=== PATIENT | female | born 1960 | race Caucasian/White ===

== ENCOUNTER → 2016-12-07 | Day surgery (SDC) | payer BC ==
[~2016-12-07] MED LIST: FENTANYL PF 100 MCG/2 ML VIAL. IV PRN; HYDROMORPHONE 2 MG/ML VIAL. IV PRN; IV RINGERS,LACTATED 1000ML 1,000 ML IV SCH; LIDOCAINE 1% 1 ML SYRINGE. ID PRN; LIDOCAINE 2% PF Vial for OR 5 ML VIAL. ONE; LISI10TA2 PO; MORPHINE SULFATE 2 MG/ML DISP.SYRIN. IV PRN; ONDANSETRON PF 4 MG/2 ML VIAL. IV PRN; PROCHLORPERAZINE 10 MG/2 ML VIAL. IV PRN; PROPOFOL 20 ML IV ONE
[2016-12-07 07:55] VITALS: BP 107/68
== END | disposition home or self-care (01) ==
LOC: ENDOS 05:57
PROVIDERS: ATTEND Internal Medicine Gastroenterology
DX: K64.0 First degree hemorrhoids (principal); I10 Essential (primary) hypertension; Z72.89 Other problems related to lifestyle; Z80.41 Family history of malignant neoplasm of ovary
CPT/HCPCS: 45378; G0500; J2704

== ENCOUNTER 2020-04-25 10:30 | Inpatient (IN) | payer BC ==
[~2020-04-25] VITALS: Ht 167.6 cm; Wt 70.0 kg
[~2020-04-25 10:30] MED LIST changes: -FENTANYL PF 100 MCG/2 ML VIAL. IV PRN; -HYDROMORPHONE 2 MG/ML VIAL. IV PRN; -IV RINGERS,LACTATED 1000ML 1,000 ML IV SCH; -LIDOCAINE 1% 1 ML SYRINGE. ID PRN; -LIDOCAINE 2% PF Vial for OR 5 ML VIAL. ONE; -MORPHINE SULFATE 2 MG/ML DISP.SYRIN. IV PRN; -ONDANSETRON PF 4 MG/2 ML VIAL. IV PRN; -PROCHLORPERAZINE 10 MG/2 ML VIAL. IV PRN; -PROPOFOL 20 ML IV ONE
[2020-04-25] MEDS ORDERED: IV NORMAL SALINE 500ML BAG 500 ML IV ONE (11:00)
--- NOTE | 2020-04-25 11:08 | PHYS DOC ---
General Adult EDM: Chief Complaint: ABNORMAL LABS HPI: HPI: 59 yo AA F past medical history of hypertension, presents to the ED sent in by her primary care physician Dr. cAosta with concern for hyponatremia, sodium 115 that was drawn yesterday. Patient reports that she was having routine lab draws to check her vitamin D level. Last labs were drawn in February. States she has felt weak for the past week and states every time she has to go up steps she feels like she needs to sit down, feels as if she will faint. Denies any trauma, falls or head injury. Does not take any anticoagulants. Denies any recent upper respiratory infection vomiting, diarrhea or fluid loss. ROS: Denies associated fever, chills, cough, sore throat, nasal congestion, headache, neck stiffness, earache, rhinorrhea, n/v/d/c, abdominal or back pain, confusion, difficulty walking, dizziness, lightheadedness, leg swelling, rash, hemoptysis, melena, hematochezia, unexplained weight loss, night sweats. Heart Score: Risk Factors: Risk Factors: DM, Current or recent (<one month) smoker, HTN, HLP, family history of CAD, obesity. Risk Scores: Score 0 - 3: 2.5% MACE over next 6 weeks - Discharge Home Score 4 - 6: 20.3% MACE over next 6 weeks - Admit for Clinical Observation Score 7 - 10: 72.7% MACE over next 6 weeks - Early Invasive Strategies Current Medications: Current Medications Medications (Trade) Dose Ordered Sig/Quynh Start Time Stop Time Status Last Admin Dose Admin Sodium Chloride 500 ml @ 500 mls/hr 1X ONCE 04/25/20 11:00 04/25/20 11:59 Allergies: Allergies: Allergies Coded Allergies Type Severity Reaction Last Updated Verified Iodinated Contrast Media - Oral and Allergy Mild Itching 12/07/16 Yes Uncoded Allergies Type Severity Reaction Last Updated Verified MALT EXTRACT- LAXATIVES Allergy Mild Itching 12/07/16 Physical Exam: PE: Constitutional: Well developed, well nourished, no acute distress, non-toxic appearance. [] HENT: Normocephalic, atraumatic, oropharynx moist, Eyes: EOMI, conjunctiva normal, no discharge. [] Neck: Normal range of motion, no tenderness, supple, no stridor. [] Cardiovascular:Heart rate regular rhythm, no murmur [] Lungs & Thorax: Bilateral breath sounds clear to auscultation [] Abdomen: Bowel sounds normal, soft, no tenderness, no masses, no pulsatile masses. [] Skin: Warm, dry, no erythema, no rash. [] Back: No tenderness, no CVA tenderness. [] Extremities: No tenderness, no cyanosis, no clubbing, ROM intact, no edema. [] Neurologic: Alert and oriented X 3, normal motor function, normal sensory function, no focal deficits noted. [] Psychologic: Affect normal, judgement normal, mood normal. [] EKG: EKG: Sinus rhythm at 62 bpm, no axis deviation, short QT at 356, no T wave inv ersions, no ST elevations or ST depressions Radiology/Procedures: Radiology/Procedures: []IMAGING REPORT Signed PATIENT: BARBARA CMCANN ACCOUNT: [id number] : 1960 LOCATION: ER AGE: 59 SEX: F EXAM STATUS: REG ER ORD. PHYSICIAN: MARA LAL DO REASON: hypoNA PROCEDURE: CHEST AP ONLY CHEST AP ONLY History: Hyponatremia Comparison: None. Findings: Single view of the chest is submitted. There is no infiltrate, pneumothorax, or effusion. The pericardial cardiac silhouette is within normal limits in size. Impression: 1. There is no radiographic evidence of acute cardiopulmonary disease. Electronically signed by: Daryl Nunez MD (04/25/2020 11:32 AM) [id number] DICTATED and SIGNED BY: DARYL NUNEZ MD DATE: 04/25/20 1132 Course & Med Decision Making: Course & Med Decision Making Pertinent Labs and Imaging studies reviewed. (See chart for details) Concern for mild (based off of symptoms) hyponatremia, patient takes 1 medicatio n for blood pressure which is triamterene/hydrochlorothiazide (hyponatremia 2/2 HCTZ?). Gentle fluid hydration started in ED. Creatinine slightly elevated at 1.4. Magnesium low at 1.7. Will admit for further medical management. Patient stable at time of admission. I have spoken with the patient and/or caregivers. I have explained the patient's condition, diagnosis and treatment plan based on the information available to me at this time. I have answered the patient's and/or caregivers questions and answered any concerns. The patient and/or caregivers have as good an understanding of the patient's diagnosis, condition and treatment plan as can be expected at this point. The patient has been stabilized within the capability of the emergency department. The patient will be transported for further care and management or will be moved to an observation or inpatient service. I have communicated with the staff or medical practitioner taking over this patient's care. Critical Care: Authorized and Performed by: Mara Lal DO Total critical care time: approximately 30 minutes Due to a high probability of clinically significant, life threatening deterioration, the patient required my highest level of preparedness to intervene emergently and I personally spent this critical care time directly and personally managing the patient. This critical care time included obtaining a history; examining the patient; pulse oximetry; ventilator management if necessary; ordering and review of studies; arranging urgent treatment with development of a management plan; evaluation of patient's response to treatment; frequent reassessment; discussion with patient/family; and, discussions with other providers. This critical care time was performed to assess and manage the high probability of imminent, life-threatening deterioration that could result in multi-organ failure. It was exclusive of separately billable procedures and treating other patients and teaching time. Please see MDM section and the rest of the note for further information on patient assessment and treatment. Dragon Disclaimer: Dragon Disclaimer: This electronic medical record was generated, in whole or in part, using a voice recognition dictation system. Departure Departure Impression: Primary Impression: Hyponatremia Additional Impressions: JOSUE (acute kidney injury) Hypomagnesemia Disposition: ADMITTED INPATIENT Admitting Physician: SKIP (Dr. Verde) Condition: CRITICAL Referrals: AIDEE PAYTON (PCP) Justicifation of Admission Dx: Justifications for Admission: Justification of Admission Dx: Yes Comments: hyponatremia MARA LAL DO Apr 25, 2020 11:08
[2020-04-25 11:34] LABS: BASO % 1 % (0-3); EOS # 0.1 x10^3/uL (0.0-0.7); EOS % 1 % (0-3); HEMATOCRIT 31.3 % (36.0-47.0); HEMOGLOBIN 10.8 g/dL (12.0-15.5); LYMPH # 1.4 x10^3/uL (1.0-4.8); LYMPH % 33 % (24-48); MEAN CORPUSCULAR HEMOGLOBIN 32 pg (25-35); MEAN CORPUSCULAR HGB CONC 35 g/dL (31-37); MEAN CORPUSCULAR VOLUME 94 fL (79-100); MONO # 0.8 x10^3/uL (0.0-1.1); MONO % 18 % (0-9); NEUT # 2.1 x10^3/uL (1.8-7.7); NEUT % 47 % (31-73); PLATELET COUNT 375 x10^3/uL (140-400); RED BLOOD COUNT 3.34 x10^6/uL (3.50-5.40); RED CELL DISTRIBUTION WIDTH 12.2 % (11.5-14.5); WHITE BLOOD COUNT 4.4 x10^3/uL (4.0-11.0)
--- NOTE | 2020-04-25 11:35 | RAD ---
CHEST AP ONLY History: Hyponatremia Comparison: None. Findings: Single view of the chest is submitted. There is no infiltrate, pneumothorax, or effusion. The pericardial cardiac silhouette is within normal limits in size. Impression: 1. There is no radiographic evidence of acute cardiopulmonary disease. Electronically signed by: Ibrahima Salazar MD (04/25/2020 11:32 AM) [id number]
[2020-04-25 12:32] LABS: ALBUMIN 4.3 g/dL (3.4-5.0); ALBUMIN/GLOBULIN RATIO 1.3 (1.0-1.7); CALCIUM 10.4 mg/dL (8.5-10.1); CREATININE 1.4 mg/dL (0.6-1.0); GFR 38.2; MAGNESIUM 1.7 mg/dL (1.8-2.4); PHOSPHORUS 2.8 mg/dL (2.6-4.7); TOTAL BILIRUBIN 0.4 mg/dL (0.2-1.0); TOTAL PROTEIN 7.7 g/dL (6.4-8.2)
--- NOTE | 2020-04-25 13:47 | PDOC1 ---
History and Physical Date of Admission Date of Admission DATE: 04/25/20 TIME: 13:46 Identification/Chief Complaint Chief Complaint cc ========= 59 yo AA F past medical history of hypertension, presents to the ED sent in by her primary care physician Dr. Acosta with concern for hyponatremia, sodium 115 that was drawn yesterday urine and serum osmolality pending as well as serum cortisol Past Medical History Cardiovascular: HTN Family History Family History: Hypertension Social History Smoke: No ALCOHOL: none Drugs: None Current Problem List Problem List Problems Medical Problems: (1) JOSUE (acute kidney injury) Status: Acute (2) Hypomagnesemia Status: Acute (3) Hyponatremia Status: Acute Current Medications Current Medications Current Medications Sodium Chloride 500 ml @ 500 mls/hr 1X ONCE IV Last administered on 04/25/20at 11:33; Start 04/25/20 at 11:00; Stop 04/25/20 at 11:59; Status DC Active Scripts Active Reported Lisinopril 10 Mg Tablet 1 Tab PO DAILY Allergies Allergies: Coded Allergies: Iodinated Contrast Media - Oral and (Verified Allergy, Mild, Itching, 12/07/16) Uncoded Allergies: MALT EXTRACT- LAXATIVES (Allergy, Mild, Itching, 12/07/16) ROS Review of System Constitutional: Denies fever or chills. [] feels light headed with activity Eyes: Denies change in visual acuity. [] HENT: Denies nasal congestion or sore throat. [] Respiratory: Denies cough or shortness of breath. [] Cardiovascular: Denies chest pain or edema. [] GI: Denies abdominal pain, nausea, vomiting, bloody stools or diarrhea. [] : Denies dysuria. [] Musculoskeletal: Denies back pain or joint pain. [] Integument: Denies rash. [] Neurologic: Denies headache, focal weakness or sensory changes. [] Endocrine: Denies polyuria or polydipsia. [] Lymphatic: Denies swollen glands. [] Psychiatric: Denies depression or anxiety. [] 14 pt ros otherwise neg General: YES: Fatigue, Malaise Hematological and Lymphatic: No: Bleeding Problems, Blood Clots, Blood Transfusions, Brusing, Night Sweats, Pallor, Swollen Lymph Nodes, Other Musculoskeletal: Yes Gait Disturbance Neurological: Yes Dizziness, Yes Gait Disturbance Physical Exam Physical Exam Constitutional: Well developed, well nourished, no acute distress, non-toxic appearance. [] HENT: Normocephalic, atraumatic, bilateral external ears normal, oropharynx moist, no oral exudates, nose normal. [] Eyes: PERRLA, EOMI, conjunctiva normal, no discharge. [] Neck: Normal range of motion, no tenderness, supple, no stridor. [] Cardiovascular:Heart rate regular rhythm, no murmur [] Lungs & Thorax: Bilateral breath sounds clear to auscultation [] Abdomen: Bowel sounds normal, soft, no tenderness, no masses, no pulsatile masses. [] Skin: Warm, dry, no erythema, no rash. [] Back: No tenderness, no CVA tenderness. [] Extremities: No tenderness, no cyanosis, no clubbing, ROM intact, no edema. [] Neurologic: Alert and oriented X 3, normal motor function, normal sensory function, no focal deficits noted. [] Psychologic: Affect normal, judgment normal, mood normal. [] General: No acute distress Lungs: Clear to auscultation, Normal air movement Heart: RRR, no thrills Breasts: Not examined Abdomen: Normal bowel sounds, Soft Rectal Exam: not examined PELVIC: Examination not indicated Extremities: No cyanosis Neuro: Normal speech, Cranial nerves 3-12 NL Psych/Mental Status: Mental status NL, Mood NL Vitals Vitals Vital Signs Date Time Temp Pulse Resp B/P (MAP) Pulse Ox O2 Delivery O2 Flow Rate FiO2 04/25/20 11:34 61 18 118/59 (78) 100 Room Air 04/25/20 11:00 98.1 98.1 Labs Labs Laboratory Tests Test 04/25/20 11:10 04/25/20 12:00 White Blood Count 4.4 x10^3/uL (4.0-11.0) Red Blood Count 3.34 x10^6/uL (3.50-5.40) Hemoglobin 10.8 g/dL (12.0-15.5) Hematocrit 31.3 % (36.0-47.0) Mean Corpuscular Volume 94 fL (79-100) Mean Corpuscular Hemoglobin 32 pg (25-35) Mean Corpuscular Hemoglobin Concent 35 g/dL (31-37) Red Cell Distribution Width 12.2 % (11.5-14.5) Platelet Count 375 x10^3/uL (140-400) Neutrophils (%) (Auto) 47 % (31-73) Lymphocytes (%) (Auto) 33 % (24-48) Monocytes (%) (Auto) 18 % (0-9) Eosinophils (%) (Auto) 1 % (0-3) Basophils (%) (Auto) 1 % (0-3) Neutrophils # (Auto) 2.1 x10^3/uL (1.8-7.7) Lymphocytes # (Auto) 1.4 x10^3/uL (1.0-4.8) Monocytes # (Auto) 0.8 x10^3/uL (0.0-1.1) Eosinophils # (Auto) 0.1 x10^3/uL (0.0-0.7) Basophils # (Auto) 0.0 x10^3/uL (0.0-0.2) Sodium Level 114 mmol/L (136-145) Potassium Level 5.0 mmol/L (3.5-5.1) Chloride Level 82 mmol/L (98-107) Carbon Dioxide Level 20 mmol/L (21-32) Anion Gap 12 (6-14) Blood Urea Nitrogen 32 mg/dL (7-20) Creatinine 1.4 mg/dL (0.6-1.0) Estimated GFR (Cockcroft-Gault) 38.2 BUN/Creatinine Ratio 23 (6-20) Glucose Level 88 mg/dL (70-99) Calcium Level 10.4 mg/dL (8.5-10.1) Phosphorus Level 2.8 mg/dL (2.6-4.7) Magnesium Level 1.7 mg/dL (1.8-2.4) Total Bilirubin 0.4 mg/dL (0.2-1.0) Aspartate Amino Transf (AST/SGOT) 14 U/L (15-37) Alanine Aminotransferase (ALT/SGPT) 18 U/L (14-59) Alkaline Phosphatase 114 U/L (46-116) Total Protein 7.7 g/dL (6.4-8.2) Albumin 4.3 g/dL (3.4-5.0) Albumin/Globulin Ratio 1.3 (1.0-1.7) Laboratory Tests Test 04/25/20 11:10 8/29/20 12:00 White Blood Count 4.4 x10^3/uL (4.0-11.0) Red Blood Count 3.34 x10^6/uL (3.50-5.40) Hemoglobin 10.8 g/dL (12.0-15.5) Hematocrit 31.3 % (36.0-47.0) Mean Corpuscular Volume 94 fL (79-100) Mean Corpuscular Hemoglobin 32 pg (25-35) Mean Corpuscular Hemoglobin Concent 35 g/dL (31-37) Red Cell Distribution Width 12.2 % (11.5-14.5) Platelet Count 375 x10^3/uL (140-400) Neutrophils (%) (Auto) 47 % (31-73) Lymphocytes (%) (Auto) 33 % (24-48) Monocytes (%) (Auto) 18 % (0-9) Eosinophils (%) (Auto) 1 % (0-3) Basophils (%) (Auto) 1 % (0-3) Neutrophils # (Auto) 2.1 x10^3/uL (1.8-7.7) Lymphocytes # (Auto) 1.4 x10^3/uL (1.0-4.8) Monocytes # (Auto) 0.8 x10^3/uL (0.0-1.1) Eosinophils # (Auto) 0.1 x10^3/uL (0.0-0.7) Basophils # (Auto) 0.0 x10^3/uL (0.0-0.2) Sodium Level 114 mmol/L (136-145) Potassium Level 5.0 mmol/L (3.5-5.1) Chloride Level 82 mmol/L (98-107) Carbon Dioxide Level 20 mmol/L (21-32) Anion Gap 12 (6-14) Blood Urea Nitrogen 32 mg/dL (7-20) Creatinine 1.4 mg/dL (0.6-1.0) Estimated GFR (Cockcroft-Gault) 38.2 BUN/Creatinine Ratio 23 (6-20) Glucose Level 88 mg/dL (70-99) Calcium Level 10.4 mg/dL (8.5-10.1) Phosphorus Level 2.8 mg/dL (2.6-4.7) Magnesium Level 1.7 mg/dL (1.8-2.4) Total Bilirubin 0.4 mg/dL (0.2-1.0) Aspartate Amino Transf (AST/SGOT) 14 U/L (15-37) Alanine Aminotransferase (ALT/SGPT) 18 U/L (14-59) Alkaline Phosphatase 114 U/L (46-116) Total Protein 7.7 g/dL (6.4-8.2) Albumin 4.3 g/dL (3.4-5.0) Albumin/Globulin Ratio 1.3 (1.0-1.7) Images Images History: Hyponatremia Comparison: None. Findings: Single view of the chest is submitted. There is no infiltrate, pneumothorax, or effusion. The pericardial cardiac silhouette is within normal limits in size. Impression: 1. There is no radiographic evidence of acute cardiopulmonary disease. Electronically signed by: Daryl Nunez MD (04/25/2020 11:32 AM) [id number] DICTATED and SIGNED BY: DARYL NUNEZ MD DATE: 04/25/20 113 VTE Prophylaxis Ordered VTE Prophylaxis Devices: Yes VTE Pharmacological Prophylaxi: Yes Assessment/Plan Assessment/Plan impression 1. 59 yo AA F past medical history of hypertension, presents with concern for hyponatremia, sodium 115 that was drawn yesterday, now 114 2. severe hyponatremia 3. mild hypercalcemia 4. normocytic anemia 5. hypomagnesemia 6. possible adrenal insufficiency plan admit ICU BED Slow correction of na, nephrology consult serum osmolality urine osmolality random urine na fluid restrict bmp q 8 hrs replace mg dvt prophylaxis AM, PM CORTISOL 32 MIN CC TIME Justifications for Admission Other Justification SHERIE LIM MD Apr 25, 2020 13:47
[2020-04-25] MEDS ORDERED: IV NORMAL SALINE 1000ML BAG 1,000 ML IV SCH (18:15)
[2020-04-25 20:50] VITALS: BP 95/51
--- NOTE | 2020-04-25 20:50 | NUR ---
pt admitted to room 103 from ED at this time. pt is alert and oriented x4, VSS on room air, able to answer admission questions without difficulty. denies pain, no c/os. pt oriented to room, unit routines, call light, diet and plan of care. call light in reach, will continue to monitor.
[2020-04-25 22:00] VITALS: BP 86/50
[2020-04-25 23:00] VITALS: BP 98/51
[2020-04-26] VITALS (12 sets, daily range): BP systolic 75–107; BP diastolic 39–61
[2020-04-26] MEDS ORDERED: TRIA1CAP PO (00:23)
[2020-04-26] MEDS ORDERED: LISI-130 PO (00:23)
[2020-04-26 10:06] LABS: CALCIUM 9.3 mg/dL (8.5-10.1); CREATININE 1.4 mg/dL (0.6-1.0); GFR 38.2; POTASSIUM 4.9 mmol/L (3.5-5.1)
--- NOTE | 2020-04-26 10:22 | PDOC ---
PROGRESS NOTES Date of Service: DATE: 04/26/20 TIME: 10:21 Chief Complaint Chief Complaint VTE Prophylaxis Ordered VTE Prophylaxis Devices: Yes VTE Pharmacological Prophylaxi: Yes Assessment/Plan Assessment/Plan impression 1. 59 yo AA F past medical history of hypertension, presents with concern for hyponatremia, sodium 115 that was drawn yesterday, now 114 2. severe hyponatremia 3. mild hypercalcemia 4. normocytic anemia 5. hypomagnesemia 6. possible adrenal insufficiency plan admit ICU BED Slow correction of na, nephrology consult serum osmolality urine osmolality random urine na fluid restrict bmp q 8 hrs replace mg dvt prophylaxis AM, PM CORTISOL avoid overcorrection, too fast cxr UDS d/c iv fluids fluid restrict 1800 cc/24 hrs 27 MIN CC TIME Justifications for Admission Justifications for Admission Other Justification History of Present Illness History of Present Illness Identification/Chief Complaint Chief Complaint cc ========= 59 yo AA F past medical history of hypertension, presents to the ED sent in by her primary care physician Dr. Acosta with concern for hyponatremia, sodium 115 that was drawn yesterday urine and serum osmolality pending as well as serum cortisol Past Medical History Cardiovascular: HTN Family History Family History: Hypertension Social History Smoke: No ALCOHOL: none Drugs: None Vitals Vitals Vital Signs Date Time Temp Pulse Resp B/P (MAP) Pulse Ox O2 Delivery O2 Flow Rate FiO2 04/26/20 09:00 61 98/61 (73) Room Air 04/26/20 08:00 98.0 16 100 98.0 04/25/20 20:50 Physical Exam General: Alert, Oriented X3, Cooperative, No acute distress Heart: Regular rate, Normal S1 Lungs: Clear Abdomen: Normal bowel sounds, Soft, No tenderness Extremities: No clubbing, No cyanosis, No edema Skin: No significant lesion Labs LABS Laboratory Tests Test 04/25/20 11:10 04/25/20 12:00 04/26/20 09:20 White Blood Count 4.4 x10^3/uL (4.0-11.0) Red Blood Count 3.34 x10^6/uL (3.50-5.40) Hemoglobin 10.8 g/dL (12.0-15.5) Hematocrit 31.3 % (36.0-47.0) Mean Corpuscular Volume 94 fL (79-100) Mean Corpuscular Hemoglobin 32 pg (25-35) Mean Corpuscular Hemoglobin Concent 35 g/dL (31-37) Red Cell Distribution Width 12.2 % (11.5-14.5) Platelet Count 375 x10^3/uL (140-400) Neutrophils (%) (Auto) 47 % (31-73) Lymphocytes (%) (Auto) 33 % (24-48) Monocytes (%) (Auto) 18 % (0-9) Eosinophils (%) (Auto) 1 % (0-3) Basophils (%) (Auto) 1 % (0-3) Neutrophils # (Auto) 2.1 x10^3/uL (1.8-7.7) Lymphocytes # (Auto) 1.4 x10^3/uL (1.0-4.8) Monocytes # (Auto) 0.8 x10^3/uL (0.0-1.1) Eosinophils # (Auto) 0.1 x10^3/uL (0.0-0.7) Basophils # (Auto) 0.0 x10^3/uL (0.0-0.2) Sodium Level 114 mmol/L (136-145) 122 mmol/L (136-145) Potassium Level 5.0 mmol/L (3.5-5.1) 4.9 mmol/L (3.5-5.1) Chloride Level 82 mmol/L (98-107) 92 mmol/L (98-107) Carbon Dioxide Level 20 mmol/L (21-32) 21 mmol/L (21-32) Anion Gap 12 (6-14) 9 (6-14) Blood Urea Nitrogen 32 mg/dL (7-20) 30 mg/dL (7-20) Creatinine 1.4 mg/dL (0.6-1.0) 1.4 mg/dL (0.6-1.0) Estimated GFR (Cockcroft-Gault) 38.2 38.2 BUN/Creatinine Ratio 23 (6-20) Glucose Level 88 mg/dL (70-99) 118 mg/dL (70-99) Calcium Level 10.4 mg/dL (8.5-10.1) 9.3 mg/dL (8.5-10.1) Phosphorus Level 2.8 mg/dL (2.6-4.7) Magnesium Level 1.7 mg/dL (1.8-2.4) Total Bilirubin 0.4 mg/dL (0.2-1.0) Aspartate Amino Transf (AST/SGOT) 14 U/L (15-37) Alanine Aminotransferase (ALT/SGPT) 18 U/L (14-59) Alkaline Phosphatase 114 U/L (46-116) Total Protein 7.7 g/dL (6.4-8.2) Albumin 4.3 g/dL (3.4-5.0) Albumin/Globulin Ratio 1.3 (1.0-1.7) Iron Level 50 ug/dL (50-170) Total Iron Binding Capacity 338 ug/dL (250-450) Iron Saturation 15 % (15-34) Assessment and Plan Assessmemt and Plan Problems Medical Problems: (1) JOSUE (acute kidney injury) Status: Acute (2) Hypomagnesemia Status: Acute (3) Hyponatremia Status: Acute Comment Review of Relevant I have reviewed the following items mickey (where applicable) has been applied. Labs Laboratory Tests Test 04/25/20 11:10 04/25/20 12:00 04/26/20 09:20 White Blood Count 4.4 x10^3/uL (4.0-11.0) Red Blood Count 3.34 x10^6/uL (3.50-5.40) Hemoglobin 10.8 g/dL (12.0-15.5) Hematocrit 31.3 % (36.0-47.0) Mean Corpuscular Volume 94 fL (79-100) Mean Corpuscular Hemoglobin 32 pg (25-35) Mean Corpuscular Hemoglobin Concent 35 g/dL (31-37) Red Cell Distribution Width 12.2 % (11.5-14.5) Platelet Count 375 x10^3/uL (140-400) Neutrophils (%) (Auto) 47 % (31-73) Lymphocytes (%) (Auto) 33 % (24-48) Monocytes (%) (Auto) 18 % (0-9) Eosinophils (%) (Auto) 1 % (0-3) Basophils (%) (Auto) 1 % (0-3) Neutrophils # (Auto) 2.1 x10^3/uL (1.8-7.7) Lymphocytes # (Auto) 1.4 x10^3/uL (1.0-4.8) Monocytes # (Auto) 0.8 x10^3/uL (0.0-1.1) Eosinophils # (Auto) 0.1 x10^3/uL (0.0-0.7) Basophils # (Auto) 0.0 x10^3/uL (0.0-0.2) Sodium Level 114 mmol/L (136-145) 122 mmol/L (136-145) Potassium Level 5.0 mmol/L (3.5-5.1) 4.9 mmol/L (3.5-5.1) Chloride Level 82 mmol/L (98-107) 92 mmol/L (98-107) Carbon Dioxide Level 20 mmol/L (21-32) 21 mmol/L (21-32) Anion Gap 12 (6-14) 9 (6-14) Blood Urea Nitrogen 32 mg/dL (7-20) 30 mg/dL (7-20) Creatinine 1.4 mg/dL (0.6-1.0) 1.4 mg/dL (0.6-1.0) Estimated GFR (Cockcroft-Gault) 38.2 38.2 BUN/Creatinine Ratio 23 (6-20) Glucose Level 88 mg/dL (70-99) 118 mg/dL (70-99) Calcium Level 10.4 mg/dL (8.5-10.1) 9.3 mg/dL (8.5-10.1) Phosphorus Level 2.8 mg/dL (2.6-4.7) Magnesium Level 1.7 mg/dL (1.8-2.4) Total Bilirubin 0.4 mg/dL (0.2-1.0) Aspartate Amino Transf (AST/SGOT) 14 U/L (15-37) Alanine Aminotransferase (ALT/SGPT) 18 U/L (14-59) Alkaline Phosphatase 114 U/L (46-116) Total Protein 7.7 g/dL (6.4-8.2) Albumin 4.3 g/dL (3.4-5.0) Albumin/Globulin Ratio 1.3 (1.0-1.7) Iron Level 50 ug/dL (50-170) Total Iron Binding Capacity 338 ug/dL (250-450) Iron Saturation 15 % (15-34) Laboratory Tests Test 04/25/20 11:10 04/25/20 12:00 04/26/20 09:20 White Blood Count 4.4 x10^3/uL (4.0-11.0) Red Blood Count 3.34 x10^6/uL (3.50-5.40) Hemoglobin 10.8 g/dL (12.0-15.5) Hematocrit 31.3 % (36.0-47.0) Mean Corpuscular Volume 94 fL (79-100) Mean Corpuscular Hemoglobin 32 pg (25-35) Mean Corpuscular Hemoglobin Concent 35 g/dL (31-37) Red Cell Distribution Width 12.2 % (11.5-14.5) Platelet Count 375 x10^3/uL (140-400) Neutrophils (%) (Auto) 47 % (31-73) Lymphocytes (%) (Auto) 33 % (24-48) Monocytes (%) (Auto) 18 % (0-9) Eosinophils (%) (Auto) 1 % (0-3) Basophils (%) (Auto) 1 % (0-3) Neutrophils # (Auto) 2.1 x10^3/uL (1.8-7.7) Lymphocytes # (Auto) 1.4 x10^3/uL (1.0-4.8) Monocytes # (Auto) 0.8 x10^3/uL (0.0-1.1) Eosinophils # (Auto) 0.1 x10^3/uL (0.0-0.7) Basophils # (Auto) 0.0 x10^3/uL (0.0-0.2) Sodium Level 114 mmol/L (136-145) 122 mmol/L (136-145) Potassium Level 5.0 mmol/L (3.5-5.1) 4.9 mmol/L (3.5-5.1) Chloride Level 82 mmol/L (98-107) 92 mmol/L (98-107) Carbon Dioxide Level 20 mmol/L (21-32) 21 mmol/L (21-32) Anion Gap 12 (6-14) 9 (6-14) Blood Urea Nitrogen 32 mg/dL (7-20) 30 mg/dL (7-20) Creatinine 1.4 mg/dL (0.6-1.0) 1.4 mg/dL (0.6-1.0) Estimated GFR (Cockcroft-Gault) 38.2 38.2 BUN/Creatinine Ratio 23 (6-20) Glucose Level 88 mg/dL (70-99) 118 mg/dL (70-99) Calcium Level 10.4 mg/dL (8.5-10.1) 9.3 mg/dL (8.5-10.1) Phosphorus Level 2.8 mg/dL (2.6-4.7) Magnesium Level 1.7 mg/dL (1.8-2.4) Total Bilirubin 0.4 mg/dL (0.2-1.0) Aspartate Amino Transf (AST/SGOT) 14 U/L (15-37) Alanine Aminotransferase (ALT/SGPT) 18 U/L (14-59) Alkaline Phosphatase 114 U/L (46-116) Total Protein 7.7 g/dL (6.4-8.2) Albumin 4.3 g/dL (3.4-5.0) Albumin/Globulin Ratio 1.3 (1.0-1.7) Iron Level 50 ug/dL (50-170) Total Iron Binding Capacity 338 ug/dL (250-450) Iron Saturation 15 % (15-34) Medications Current Medications Sodium Chloride 500 ml @ 500 mls/hr 1X ONCE IV Last administered on 04/25/20at 11:33; Start 04/25/20 at 11:00; Stop 04/25/20 at 11:59; Status DC Sodium Chloride 1,000 ml @ 75 mls/hr [id number] IV Last administered on 04/25/20at 18:25; Start 04/25/20 at 18:15 Active Scripts Active Reported Dyazide 37.5-25 Capsule (Triamterene/Hydrochlorothiazid) 1 Each Capsule 1 Cap PO DAILY Lisinopril 40 Mg Tablet 40 Mg PO DAILY Lisinopril 10 Mg Tablet 1 Tab PO DAILY Vitals/I & O Vital Sign - Last 24 Hours 04/25/20 04/25/20 04/25/20 04/25/20 11:00 11:34 12:18 13:18 Temp 98.1 98.1 Pulse 71 61 56 56 Resp 18 18 B/P (MAP) 123/68 (86) 118/59 (78) 120/65 (83) 119/59 (79) Pulse Ox 100 100 100 100 O2 Delivery Room Air Room Air Room Air Room Air 04/25/20 04/25/20 04/25/20 04/25/20 14:18 14:48 15:18 15:48 Pulse 66 62 62 62 B/P (MAP) 94/58 (70) 103/61 (75) 106/62 (77) 95/51 (66) Pulse Ox 100 100 99 100 O2 Delivery Room Air Room Air Room Air Room Air 04/25/20 04/25/20 04/25/20 04/25/20 16:18 16:48 17:18 18:28 Pulse 62 68 60 70 B/P (MAP) 86/54 (65) 97/47 (64) 81/44 (56) 85/48 (60) Pulse Ox 96 96 100 O2 Delivery Room Air Room Air Room Air Room Air 04/25/20 04/25/20 04/25/20 04/25/20 18:58 19:28 20:50 22:00 Temp 98.3 98.3 Pulse 66 62 65 60 Resp 18 20 B/P (MAP) 79/55 (63) 98/51 (67) 95/51 (66) 86/50 (62) Pulse Ox 100 62 98 98 O2 Delivery Room Air Room Air Room Air Room Air O2 Flow Rate 04/25/20 04/26/20 04/26/20 04/26/20 23:00 01:00 02:00 03:00 Temp 98.2 98.2 Pulse 66 68 63 66 Resp 16 18 18 18 B/P (MAP) 98/51 (67) 91/47 (62) 90/40 (57) 99/45 (63) Pulse Ox 97 99 98 100 O2 Delivery Room Air Room Air Room Air Room Air 04/26/20 04/26/20 04/26/20 04/26/20 04:00 05:00 06:00 07:00 Pulse 65 59 83 60 Resp 18 18 16 14 B/P (MAP) 80/39 (53) 96/54 (68) 94/48 (63) 78/56 (63) Pulse Ox 100 99 100 97 O2 Delivery Room Air Room Air Room Air Room Air 04/26/20 04/26/20 08:00 09:00 Temp 98.0 98.0 Pulse 60 61 Resp 16 B/P (MAP) 75/58 (64) 98/61 (73) Pulse Ox 100 O2 Delivery Room Air Room Air Intake and Output 0 04/25/20 04/25/20 04/26/20 15:00 23:00 07:00 Intake Total 500 ml 1590 ml Balance 500 ml 1590 ml Justicifation of Admission Dx: Justifications for Admission: Justification of Admission Dx: Yes SHERIE LIM MD Apr 26, 2020 10:21
--- NOTE | 2020-04-26 14:53 | PDOC2 ---
CONSULT Date of Consult Date of Consult DATE: 04/26/20 TIME: 14:37 Reason for Consult Reason for Consult: LOW NA Referring Physician Referring Physician: RAPHAEL Identification/Chief Complaint Chief Complaint COMPLAINTS OF WEAKNESS AND SOME DIZZINESS Source Source: Chart review, Patient History of Present Illness Reason for Visit: THIS IS A 59 YR OLD WITH SOME DIZZINESS. OP LABS SHOWED A LOW NA AND SHE WAS ASKED TO COME IN AND LABS HERE CONFIRMED LOW NA. DENIED ANY EXCESSIVE NA OR WATER INTAKE. NO EXCESSIVE THIRST. NO EDEMA. HAS BEEN ON THIAZIDE AND AN CHARLES-I FOR YEARS. LABS ALSO NOTED FOR MILD HYPERCALCEMIA AND LOW MG Past Medical History Cardiovascular: HTN Family History Family History: Hypertension Social History No ALCOHOL: none Drugs: None Current Problem List Problem List Problems Medical Problems: (1) JOSUE (acute kidney injury) Status: Acute (2) Hypomagnesemia Status: Acute (3) Hyponatremia Status: Acute Current Medications Current Medications Current Medications Sodium Chloride 500 ml @ 500 mls/hr 1X ONCE IV Last administered on 04/25/20at 11:33; Start 04/25/20 at 11:00; Stop 04/25/20 at 11:59; Status DC Sodium Chloride 1,000 ml @ 75 mls/hr [id number] IV Last administered on 04/25/20at 18:25; Start 04/25/20 at 18:15; Stop 04/26/20 at 12:02; Status DC Active Scripts Active Reported Dyazide 37.5-25 Capsule (Triamterene/Hydrochlorothiazid) 1 Each Capsule 1 Cap PO DAILY Lisinopril 40 Mg Tablet 40 Mg PO DAILY Lisinopril 10 Mg Tablet 1 Tab PO DAILY Allergies Allergies: Coded Allergies: Iodinated Contrast Media (Verified Allergy, Intermediate, Itching, 04/25/20) malt extract (Verified Allergy, Intermediate, Itching, 04/25/20) ROS General: YES: Fatigue, Malaise PSYCHOLOGICAL ROS: YES: Anxiety, Depression Eyes: Yes Decreased vision ALLERGY AND IMMUNOLOGY: YES: Seasonal Allergies Gastrointestinal: Yes Constipation Genitourinary: YES Other (NOCTURIA) Musculoskeletal: Yes Muscular Weakness Neurological: Yes Dizziness, Yes Weakness Skin: Yes Dry Skin Physical Exam General: Alert, Oriented X3, Cooperative, No acute distress HEENT: PERRLA Lungs: Clear to auscultation, Normal air movement Heart: Regular rate Abdomen: Normal bowel sounds, Soft, No tenderness Extremities: No cyanosis Skin: No breakdown Neuro: Normal speech, Sensation intact Vitals VITALS Vital Signs Date Time Temp Pulse Resp B/P (MAP) Pulse Ox O2 Delivery O2 Flow Rate FiO2 04/26/20 12:00 98.5 62 18 86/45 (59) 98 Room Air 98.5 04/25/20 20:50 Labs Labs Laboratory Tests Test 04/25/20 11:10 04/25/20 12:00 04/26/20 09:20 White Blood Count 4.4 x10^3/uL (4.0-11.0) Red Blood Count 3.34 x10^6/uL (3.50-5.40) Hemoglobin 10.8 g/dL (12.0-15.5) Hematocrit 31.3 % (36.0-47.0) Mean Corpuscular Volume 94 fL (79-100) Mean Corpuscular Hemoglobin 32 pg (25-35) Mean Corpuscular Hemoglobin Concent 35 g/dL (31-37) Red Cell Distribution Width 12.2 % (11.5-14.5) Platelet Count 375 x10^3/uL (140-400) Neutrophils (%) (Auto) 47 % (31-73) Lymphocytes (%) (Auto) 33 % (24-48) Monocytes (%) (Auto) 18 % (0-9) Eosinophils (%) (Auto) 1 % (0-3) Basophils (%) (Auto) 1 % (0-3) Neutrophils # (Auto) 2.1 x10^3/uL (1.8-7.7) Lymphocytes # (Auto) 1.4 x10^3/uL (1.0-4.8) Monocytes # (Auto) 0.8 x10^3/uL (0.0-1.1) Eosinophils # (Auto) 0.1 x10^3/uL (0.0-0.7) Basophils # (Auto) 0.0 x10^3/uL (0.0-0.2) Sodium Level 114 mmol/L (136-145) 122 mmol/L (136-145) Potassium Level 5.0 mmol/L (3.5-5.1) 4.9 mmol/L (3.5-5.1) Chloride Level 82 mmol/L (98-107) 92 mmol/L (98-107) Carbon Dioxide Level 20 mmol/L (21-32) 21 mmol/L (21-32) Anion Gap 12 (6-14) 9 (6-14) Blood Urea Nitrogen 32 mg/dL (7-20) 30 mg/dL (7-20) Creatinine 1.4 mg/dL (0.6-1.0) 1.4 mg/dL (0.6-1.0) Estimated GFR (Cockcroft-Gault) 38.2 38.2 BUN/Creatinine Ratio 23 (6-20) Glucose Level 88 mg/dL (70-99) 118 mg/dL (70-99) Calcium Level 10.4 mg/dL (8.5-10.1) 9.3 mg/dL (8.5-10.1) Phosphorus Level 2.8 mg/dL (2.6-4.7) Magnesium Level 1.7 mg/dL (1.8-2.4) Total Bilirubin 0.4 mg/dL (0.2-1.0) Aspartate Amino Transf (AST/SGOT) 14 U/L (15-37) Alanine Aminotransferase (ALT/SGPT) 18 U/L (14-59) Alkaline Phosphatase 114 U/L (46-116) Total Protein 7.7 g/dL (6.4-8.2) Albumin 4.3 g/dL (3.4-5.0) Albumin/Globulin Ratio 1.3 (1.0-1.7) Iron Level 50 ug/dL (50-170) Total Iron Binding Capacity 338 ug/dL (250-450) Iron Saturation 15 % (15-34) Free Thyroxine 0.99 ng/dL (0.76-1.46) Laboratory Tests Test 04/26/20 09:20 Sodium Level 122 mmol/L (136-145) Potassium Level 4.9 mmol/L (3.5-5.1) Chloride Level 92 mmol/L (98-107) Carbon Dioxide Level 21 mmol/L (21-32) Anion Gap 9 (6-14) Blood Urea Nitrogen 30 mg/dL (7-20) Creatinine 1.4 mg/dL (0.6-1.0) Estimated GFR (Cockcroft-Gault) 38.2 Glucose Level 118 mg/dL (70-99) Calcium Level 9.3 mg/dL (8.5-10.1) Iron Level 50 ug/dL (50-170) Total Iron Binding Capacity 338 ug/dL (250-450) Iron Saturation 15 % (15-34) Free Thyroxine 0.99 ng/dL (0.76-1.46) Assessment/Plan Assessment/Plan IMP SEVERE HYPONATREMIA LOW MAG HYPERCALCEMIA HYPOTENSION PLAN AGREE WITH CORTISOL LEVEL SERUM AND URINE OSM PENDING CHECK URINE LYTES REPLACE MAG ISOTONIC SALINE FOR NOW RODRIGO DERAS MD Apr 26, 2020 14:53
[2020-04-26] MEDS ORDERED: IV NORMAL SALINE 1000ML BAG 1,000 ML IV SCH (15:00)
[2020-04-26] MEDS ORDERED: MAGNESIUM SULFATE 2GM 50 ML IV ONE (15:15)
--- NOTE | 2020-04-26 15:34 | RAD ---
CHEST AP ONLY INDICATION: hyponatremia / Spl. Instructions: / History: . COMPARISON STUDY: 04/25/2020. FINDINGS: Lungs: Normal lung volume. No focal airspace disease. Normal pulmonary vasculature. Pleura: No pleural effusion or pneumothorax. Heart and Mediastinum: Stable cardiomediastinal silhouette and great vessels. IMPRESSION: No acute cardiopulmonary process. Electronically signed by: Ibrahima Flowers MD (04/26/2020 3:31 PM) [id number]
[2020-04-26 16:57] LABS: CALCIUM 9.7 mg/dL (8.5-10.1); CREATININE 1.2 mg/dL (0.6-1.0); GFR 45.7; POTASSIUM 4.6 mmol/L (3.5-5.1)
[2020-04-26] MEDS: MAGNESIUM OXIDE 400 MG TABLET PO SCH (17:47)
[2020-04-26 18:14] LABS: AMPHETAMINE/METHAMPHETAMINE NEG (NEG); BARBITURATES NEG (NEG); BENZODIAZEPINES NEG (NEG); CANNABINOIDS NEG (NEG); COCAINE NEG (NEG); METHADONE NEG (NEG); OPIATES NEG (NEG); PHENCYCLIDINE NEG (NEG)
[2020-04-26 21:12] LABS: CALCIUM 10.1 mg/dL (8.5-10.1); CREATININE 1.1 mg/dL (0.6-1.0); GFR 50.5; POTASSIUM 5.1 mmol/L (3.5-5.1)
[2020-04-27] VITALS (7 sets, daily range): BP systolic 79–117; BP diastolic 41–58
--- NOTE | 2020-04-27 04:30 | NUR ---
pt transferred to room 207 at this time, with all her personal belongings. pt and VSS upon transfer.
[2020-04-27 05:03] LABS: BASO % 1 % (0-3); EOS % 1 % (0-3); HEMATOCRIT 30.1 % (36.0-47.0); HEMOGLOBIN 10.2 g/dL (12.0-15.5); LYMPH # 1.5 x10^3/uL (1.0-4.8); LYMPH % 38 % (24-48); MEAN CORPUSCULAR HEMOGLOBIN 33 pg (25-35); MEAN CORPUSCULAR HGB CONC 34 g/dL (31-37); MEAN CORPUSCULAR VOLUME 96 fL (79-100); MONO # 0.6 x10^3/uL (0.0-1.1); MONO % 14 % (0-9); NEUT # 1.8 x10^3/uL (1.8-7.7); NEUT % 45 % (31-73); PLATELET COUNT 324 x10^3/uL (140-400); RED BLOOD COUNT 3.14 x10^6/uL (3.50-5.40); RED CELL DISTRIBUTION WIDTH 12.2 % (11.5-14.5); WHITE BLOOD COUNT 3.9 x10^3/uL (4.0-11.0)
--- NOTE | 2020-04-27 07:09 | EKG ---
[facility] [address] [place] [address] Test Date: 2020-04-25 Test Time: 11:08:48 Pat Name: BARBARA MCCANN Department: Room: Gender: F Slide Maker: : 1960 Requested By: BETTIE LAL Order Number: [id number] Reading MD: Measurements Intervals [place] Rate: 62 P: 54 AL: 172 QRS: 12 QRSD: 94 T: 31 QT: 356 QTc: 363 Interpretive Statements SINUS RHYTHM NORMAL ECG RI6.02 No previous ECG available for comparison
[2020-04-27] MEDS: MAGNESIUM OXIDE 400 MG TABLET PO SCH (09:14)
[2020-04-27 09:52] LABS: ALBUMIN 3.8 g/dL (3.4-5.0); ALBUMIN/GLOBULIN RATIO 1.2 (1.0-1.7); CALCIUM 10.3 mg/dL (8.5-10.1); CREATININE 1.1 mg/dL (0.6-1.0); GFR 50.5; POTASSIUM 5.1 mmol/L (3.5-5.1); TOTAL BILIRUBIN 0.2 mg/dL (0.2-1.0)
--- NOTE | 2020-04-27 09:53 | PDOC ---
DATE OF SERVICE DATE: 04/27/20 TIME: 09:51 SUBJECTIVE ROS No complaints, upset and c/o "has not been able to sleep since her hospitalization" Denies dizziness, reports good UOP Transferred out of ICU OBJECTIVE Vital Signs Vital Signs Date Time Temp Pulse Resp B/P (MAP) Pulse Ox O2 Delivery O2 Flow Rate FiO2 04/27/20 06:12 97.9 67 18 82/46 (58) 100 Room Air 97.9 I & 0 Intake and Output 04/27/20 07:00 Intake Total 2445 ml Output Total 300 ml Balance 2145 ml Intake Oral 1770 ml IV Total 675 ml Output Urine Total 300 ml # Voids 5 PHYSICAL EXAM Physical Exam General: Alert, Oriented X3, Cooperative, No acute distress HEENT: PERRLA Lungs: Clear to auscultation, Normal air movement Heart: Regular rate Abdomen: Normal bowel sounds, Soft, No tenderness Extremities: No cyanosis, No edema Skin: No rash Neuro: Normal speech, Sensation intact - No lilly DIAGNOSIS/ASSESSMENT Assessment & Plan Hyponatremia- severe -114 at presentation Was on HCTZ , held, Improving with IVF to 126 this am Restrict PO fluids , Recommend IV NS 500 ml Bolus if BP persistently low Cortisol normal, TSH normal, Ur Chandu and Osm pending Strict UOP , Daily BMP Low Mg- replaced HyperCalcemia- improved Hypotension- since presentation, fluid bolus as above At home on antohypertesnives- CHARLES-I and HCTZ COMMENT/RELEVANT DATA Meds Current Medications Medications (Trade) Dose Ordered Sig/Quynh Start Time Stop Time Status Last Admin Dose Admin Magnesium Oxide (Magnesium Oxide) 400 mg DAILY 04/26/20 17:00 04/27/20 09:14 400 MG Magnesium Sulfate 50 ml @ 25 mls/hr 1X ONCE 04/26/20 15:15 04/26/20 16:46 DC Sodium Chloride 1,000 ml @ 75 mls/hr [id number] 04/26/20 15:00 04/26/20 16:46 DC Lab Laboratory Tests Test 04/26/20 16:30 04/26/20 17:25 04/26/20 20:45 04/27/20 04:18 Sodium Level 120 mmol/L (136-145) 124 mmol/L (136-145) Potassium Level 4.6 mmol/L (3.5-5.1) 5.1 mmol/L (3.5-5.1) Chloride Level 93 mmol/L (98-107) 96 mmol/L (98-107) Carbon Dioxide Level 24 mmol/L (21-32) 22 mmol/L (21-32) Anion Gap 3 (6-14) 6 (6-14) Blood Urea Nitrogen 28 mg/dL (7-20) 27 mg/dL (7-20) Creatinine 1.2 mg/dL (0.6-1.0) 1.1 mg/dL (0.6-1.0) Estimated GFR (Cockcroft-Gault) 45.7 50.5 Glucose Level 124 mg/dL (70-99) 114 mg/dL (70-99) Calcium Level 9.7 mg/dL (8.5-10.1) 10.1 mg/dL (8.5-10.1) Urine Opiates Screen Neg (NEG) Urine Methadone Screen Neg (NEG) Urine Barbiturates Neg (NEG) Urine Phencyclidine Screen Neg (NEG) Urine Amphetamine/Methamphetamine Neg (NEG) Urine Benzodiazepines Screen Neg (NEG) Urine Cocaine Screen Neg (NEG) Urine Cannabinoids Screen Neg (NEG) Urine Ethyl Alcohol Neg (NEG) White Blood Count 3.9 x10^3/uL (4.0-11.0) Red Blood Count 3.14 x10^6/uL (3.50-5.40) Hemoglobin 10.2 g/dL (12.0-15.5) Hematocrit 30.1 % (36.0-47.0) Mean Corpuscular Volume 96 fL (79-100) Mean Corpuscular Hemoglobin 33 pg (25-35) Mean Corpuscular Hemoglobin Concent 34 g/dL (31-37) Red Cell Distribution Width 12.2 % (11.5-14.5) Platelet Count 324 x10^3/uL (140-400) Neutrophils (%) (Auto) 45 % (31-73) Lymphocytes (%) (Auto) 38 % (24-48) Monocytes (%) (Auto) 14 % (0-9) Eosinophils (%) (Auto) 1 % (0-3) Basophils (%) (Auto) 1 % (0-3) Neutrophils # (Auto) 1.8 x10^3/uL (1.8-7.7) Lymphocytes # (Auto) 1.5 x10^3/uL (1.0-4.8) Monocytes # (Auto) 0.6 x10^3/uL (0.0-1.1) Eosinophils # (Auto) 0.0 x10^3/uL (0.0-0.7) Basophils # (Auto) 0.0 x10^3/uL (0.0-0.2) Magnesium Level 2.0 mg/dL (1.8-2.4) Cortisol AM Sample 15.0 ug/dL (4.3-22.4) Results All relevant outside records, renal labs, imaging studies, telemetry/EKG's were reviewed. Justicifation of Admission Dx: Justifications for Admission: Justification of Admission Dx: Yes JEFFERSON OLSEN MD Apr 27, 2020 09:53
--- NOTE | 2020-04-27 10:50 | PDOC ---
PROGRESS NOTES Date of Service: DATE: 04/27/20 TIME: 10:50 Chief Complaint Chief Complaint VTE Prophylaxis Ordered VTE Prophylaxis Devices: Yes VTE Pharmacological Prophylaxi: Yes Assessment/Plan Assessment/Plan impression 1. 59 yo AA F past medical history of hypertension, presents with concern for hyponatremia, sodium 115 that was drawn yesterday, now 114 2. severe hyponatremia 3. mild hypercalcemia 4. normocytic anemia 5. hypomagnesemia 6. possible adrenal insufficiency 7. hypercalcemia ? OCCULT MALIGNANCY plan admit ICU BED Slow correction of na, nephrology consult serum osmolality urine osmolality random urine na fluid restrict bmp q 8 hrs replace mg dvt prophylaxis AM, PM CORTISOL avoid overcorrection, too fast cxr UDS d/c iv fluids fluid restrict 1800 cc/24 hrs fe panel retic count ionized ca parathyroid hormone level serum and urine immunofixation IGG, IGA, IGM HEME CONSULT CT ABD, PELVIS 27 MIN CC TIME Justifications for Admission Justifications for Admission Other Justification History of Present Illness History of Present Illness Identification/Chief Complaint Chief Complaint cc ========= 59 yo AA F past medical history of hypertension, presents to the ED sent in by her primary care physician Dr. Acosta with concern for hyponatremia, sodium 115 that was drawn yesterday urine and serum osmolality pending as well as serum cortisol Past Medical History Cardiovascular: HTN Family History Family History: Hypertension Social History Smoke: No ALCOHOL: none Drugs: None Vitals Vitals Vital Signs Date Time Temp Pulse Resp B/P (MAP) Pulse Ox O2 Delivery O2 Flow Rate FiO2 04/27/20 10:35 98.4 61 18 79/47 (58) 100 Room Air 98.4 Physical Exam General: Alert, Oriented X3, Cooperative, No acute distress Heart: Regular rate Lungs: Clear Abdomen: Normal bowel sounds, Soft, No tenderness Extremities: No cyanosis Skin: No breakdown Labs LABS REASON: HYPERCALCEMIA, ANEMIA PROCEDURE: CT ABDOMEN PELVIS WO CONTRAST CT ABDOMEN PELVIS WO CONTRAST INDICATION: HYPERCALCEMIA, ANEMIA EXAM: Noncontrast CT of the abdomen and pelvis. Coronal and sagittal reformatted images were performed. PQRS compliance statement: One or more of the following individualized dose reduction techniques were utilized for this examination: 1. Automated exposure control 2. Adjustment of the mA and/or kV according to patient size 3. Use of iterative reconstruction technique COMPARISON: None FINDINGS: No free air, free fluid, or fluid collection. Lower chest: The visualized lower lungs are aerated. No pleural or pericardial effusion. ABDOMEN: Liver: The noncontrast liver is homogeneous in attenuation. Gallbladder and biliary: Normal gallbladder without radiopaque stone. Normal caliber bile ducts. Spleen: Normal spleen. Pancreas: The noncontrast pancreas is homogeneous in attenuation without peripancreatic inflammatory changes. Adrenal glands: Normal adrenal glands. Kidneys and ureters: No opaque urinary calculi. Normal kidneys and ureters. GI tract: The stomach is decompressed and poorly evaluated. Normal caliber small bowel and colon. Normal appendix. Vascular structures: Normal caliber abdominal aorta. Mild aortoiliac atherosclerotic disease. Lymph nodes: No lymphadenopathy in the abdomen or pelvis. PELVIS: Genitourinary system: Normal bladder. Calcified uterine fibroid. SKELETAL STRUCTURES AND SOFT TISSUES: No fracture or destructive lesion in the visualized skeleton. IMPRESSION: No acute findings. No mass or lymphadenopathy. Electronically signed by: Daryl Chin MD (04/27/2020 3:42 PM) [id number] DICTATED and SIGNED BY: DARYL CHIN MD DATE: 04/27/20 1542 Laboratory Tests Test 04/26/20 16:30 04/26/20 17:25 04/26/20 20:45 04/27/20 04:18 Sodium Level 120 mmol/L (136-145) 124 mmol/L (136-145) 126 mmol/L (136-145) Potassium Level 4.6 mmol/L (3.5-5.1) 5.1 mmol/L (3.5-5.1) 5.1 mmol/L (3.5-5.1) Chloride Level 93 mmol/L (98-107) 96 mmol/L (98-107) 97 mmol/L (98-107) Carbon Dioxide Level 24 mmol/L (21-32) 22 mmol/L (21-32) 22 mmol/L (21-32) Anion Gap 3 (6-14) 6 (6-14) 7 (6-14) Blood Urea Nitrogen 28 mg/dL (7-20) 27 mg/dL (7-20) 24 mg/dL (7-20) Creatinine 1.2 mg/dL (0.6-1.0) 1.1 mg/dL (0.6-1.0) 1.1 mg/dL (0.6-1.0) Estimated GFR (Cockcroft-Gault) 45.7 50.5 50.5 Glucose Level 124 mg/dL (70-99) 114 mg/dL (70-99) 96 mg/dL (70-99) Calcium Level 9.7 mg/dL (8.5-10.1) 10.1 mg/dL (8.5-10.1) 10.3 mg/dL (8.5-10.1) Urine Opiates Screen Neg (NEG) Urine Methadone Screen Neg (NEG) Urine Barbiturates Neg (NEG) Urine Phencyclidine Screen Neg (NEG) Urine Amphetamine/Methamphetamine Neg (NEG) Urine Benzodiazepines Screen Neg (NEG) Urine Cocaine Screen Neg (NEG) Urine Cannabinoids Screen Neg (NEG) Urine Ethyl Alcohol Neg (NEG) White Blood Count 3.9 x10^3/uL (4.0-11.0) Red Blood Count 3.14 x10^6/uL (3.50-5.40) Hemoglobin 10.2 g/dL (12.0-15.5) Hematocrit 30.1 % (36.0-47.0) Mean Corpuscular Volume 96 fL (79-100) Mean Corpuscular Hemoglobin 33 pg (25-35) Mean Corpuscular Hemoglobin Concent 34 g/dL (31-37) Red Cell Distribution Width 12.2 % (11.5-14.5) Platelet Count 324 x10^3/uL (140-400) Neutrophils (%) (Auto) 45 % (31-73) Lymphocytes (%) (Auto) 38 % (24-48) Monocytes (%) (Auto) 14 % (0-9) Eosinophils (%) (Auto) 1 % (0-3) Basophils (%) (Auto) 1 % (0-3) Neutrophils # (Auto) 1.8 x10^3/uL (1.8-7.7) Lymphocytes # (Auto) 1.5 x10^3/uL (1.0-4.8) Monocytes # (Auto) 0.6 x10^3/uL (0.0-1.1) Eosinophils # (Auto) 0.0 x10^3/uL (0.0-0.7) Basophils # (Auto) 0.0 x10^3/uL (0.0-0.2) BUN/Creatinine Ratio 22 (6-20) Magnesium Level 2.0 mg/dL (1.8-2.4) Total Bilirubin 0.2 mg/dL (0.2-1.0) Aspartate Amino Transf (AST/SGOT) 14 U/L (15-37) Alanine Aminotransferase (ALT/SGPT) 23 U/L (14-59) Alkaline Phosphatase 107 U/L (46-116) Total Protein 7.0 g/dL (6.4-8.2) Albumin 3.8 g/dL (3.4-5.0) Albumin/Globulin Ratio 1.2 (1.0-1.7) Cortisol AM Sample 15.0 ug/dL (4.3-22.4) Assessment and Plan Assessmemt and Plan Problems Medical Problems: (1) JOSUE (acute kidney injury) Status: Acute (2) Hypomagnesemia Status: Acute (3) Hyponatremia Status: Acute Comment Review of Relevant I have reviewed the following items mickey (where applicable) has been applied. Labs Laboratory Tests Test 04/25/20 11:10 04/25/20 12:00 04/26/20 09:20 04/26/20 16:30 White Blood Count 4.4 x10^3/uL (4.0-11.0) Red Blood Count 3.34 x10^6/uL (3.50-5.40) Hemoglobin 10.8 g/dL (12.0-15.5) Hematocrit 31.3 % (36.0-47.0) Mean Corpuscular Volume 94 fL (79-100) Mean Corpuscular Hemoglobin 32 pg (25-35) Mean Corpuscular Hemoglobin Concent 35 g/dL (31-37) Red Cell Distribution Width 12.2 % (11.5-14.5) Platelet Count 375 x10^3/uL (140-400) Neutrophils (%) (Auto) 47 % (31-73) Lymphocytes (%) (Auto) 33 % (24-48) Monocytes (%) (Auto) 18 % (0-9) Eosinophils (%) (Auto) 1 % (0-3) Basophils (%) (Auto) 1 % (0-3) Neutrophils # (Auto) 2.1 x10^3/uL (1.8-7.7) Lymphocytes # (Auto) 1.4 x10^3/uL (1.0-4.8) Monocytes # (Auto) 0.8 x10^3/uL (0.0-1.1) Eosinophils # (Auto) 0.1 x10^3/uL (0.0-0.7) Basophils # (Auto) 0.0 x10^3/uL (0.0-0.2) Sodium Level 114 mmol/L (136-145) 122 mmol/L (136-145) 120 mmol/L (136-145) Potassium Level 5.0 mmol/L (3.5-5.1) 4.9 mmol/L (3.5-5.1) 4.6 mmol/L (3.5-5.1) Chloride Level 82 mmol/L (98-107) 92 mmol/L (98-107) 93 mmol/L (98-107) Carbon Dioxide Level 20 mmol/L (21-32) 21 mmol/L (21-32) 24 mmol/L (21-32) Anion Gap 12 (6-14) 9 (6-14) 3 (6-14) Blood Urea Nitrogen 32 mg/dL (7-20) 30 mg/dL (7-20) 28 mg/dL (7-20) Creatinine 1.4 mg/dL (0.6-1.0) 1.4 mg/dL (0.6-1.0) 1.2 mg/dL (0.6-1.0) Estimated GFR (Cockcroft-Gault) 38.2 38.2 45.7 BUN/Creatinine Ratio 23 (6-20) Glucose Level 88 mg/dL (70-99) 118 mg/dL (70-99) 124 mg/dL (70-99) Calcium Level 10.4 mg/dL (8.5-10.1) 9.3 mg/dL (8.5-10.1) 9.7 mg/dL (8.5-10.1) Phosphorus Level 2.8 mg/dL (2.6-4.7) Magnesium Level 1.7 mg/dL (1.8-2.4) Total Bilirubin 0.4 mg/dL (0.2-1.0) Aspartate Amino Transf (AST/SGOT) 14 U/L (15-37) Alanine Aminotransferase (ALT/SGPT) 18 U/L (14-59) Alkaline Phosphatase 114 U/L (46-116) Total Protein 7.7 g/dL (6.4-8.2) Albumin 4.3 g/dL (3.4-5.0) Albumin/Globulin Ratio 1.3 (1.0-1.7) Iron Level 50 ug/dL (50-170) Total Iron Binding Capacity 338 ug/dL (250-450) Iron Saturation 15 % (15-34) Free Thyroxine 0.99 ng/dL (0.76-1.46) Test 04/26/20 17:25 04/26/20 20:45 04/27/20 04:18 Urine Opiates Screen Neg (NEG) Urine Methadone Screen Neg (NEG) Urine Barbiturates Neg (NEG) Urine Phencyclidine Screen Neg (NEG) Urine Amphetamine/Methamphetamine Neg (NEG) Urine Benzodiazepines Screen Neg (NEG) Urine Cocaine Screen Neg (NEG) Urine Cannabinoids Screen Neg (NEG) Urine Ethyl Alcohol Neg (NEG) Sodium Level 124 mmol/L (136-145) 126 mmol/L (136-145) Potassium Level 5.1 mmol/L (3.5-5.1) 5.1 mmol/L (3.5-5.1) Chloride Level 96 mmol/L (98-107) 97 mmol/L (98-107) Carbon Dioxide Level 22 mmol/L (21-32) 22 mmol/L (21-32) Anion Gap 6 (6-14) 7 (6-14) Blood Urea Nitrogen 27 mg/dL (7-20) 24 mg/dL (7-20) Creatinine 1.1 mg/dL (0.6-1.0) 1.1 mg/dL (0.6-1.0) Estimated GFR (Cockcroft-Gault) 50.5 50.5 Glucose Level 114 mg/dL (70-99) 96 mg/dL (70-99) Calcium Level 10.1 mg/dL (8.5-10.1) 10.3 mg/dL (8.5-10.1) White Blood Count 3.9 x10^3/uL (4.0-11.0) Red Blood Count 3.14 x10^6/uL (3.50-5.40) Hemoglobin 10.2 g/dL (12.0-15.5) Hematocrit 30.1 % (36.0-47.0) Mean Corpuscular Volume 96 fL (79-100) Mean Corpuscular Hemoglobin 33 pg (25-35) Mean Corpuscular Hemoglobin Concent 34 g/dL (31-37) Red Cell Distribution Width 12.2 % (11.5-14.5) Platelet Count 324 x10^3/uL (140-400) Neutrophils (%) (Auto) 45 % (31-73) Lymphocytes (%) (Auto) 38 % (24-48) Monocytes (%) (Auto) 14 % (0-9) Eosinophils (%) (Auto) 1 % (0-3) Basophils (%) (Auto) 1 % (0-3) Neutrophils # (Auto) 1.8 x10^3/uL (1.8-7.7) Lymphocytes # (Auto) 1.5 x10^3/uL (1.0-4.8) Monocytes # (Auto) 0.6 x10^3/uL (0.0-1.1) Eosinophils # (Auto) 0.0 x10^3/uL (0.0-0.7) Basophils # (Auto) 0.0 x10^3/uL (0.0-0.2) BUN/Creatinine Ratio 22 (6-20) Magnesium Level 2.0 mg/dL (1.8-2.4) Total Bilirubin 0.2 mg/dL (0.2-1.0) Aspartate Amino Transf (AST/SGOT) 14 U/L (15-37) Alanine Aminotransferase (ALT/SGPT) 23 U/L (14-59) Alkaline Phosphatase 107 U/L (46-116) Total Protein 7.0 g/dL (6.4-8.2) Albumin 3.8 g/dL (3.4-5.0) Albumin/Globulin Ratio 1.2 (1.0-1.7) Cortisol AM Sample 15.0 ug/dL (4.3-22.4) Laboratory Tests Test 04/26/20 16:30 04/26/20 17:25 04/26/20 20:45 04/27/20 04:18 Sodium Level 120 mmol/L (136-145) 124 mmol/L (136-145) 126 mmol/L (136-145) Potassium Level 4.6 mmol/L (3.5-5.1) 5.1 mmol/L (3.5-5.1) 5.1 mmol/L (3.5-5.1) Chloride Level 93 mmol/L (98-107) 96 mmol/L (98-107) 97 mmol/L (98-107) Carbon Dioxide Level 24 mmol/L (21-32) 22 mmol/L (21-32) 22 mmol/L (21-32) Anion Gap 3 (6-14) 6 (6-14) 7 (6-14) Blood Urea Nitrogen 28 mg/dL (7-20) 27 mg/dL (7-20) 24 mg/dL (7-20) Creatinine 1.2 mg/dL (0.6-1.0) 1.1 mg/dL (0.6-1.0) 1.1 mg/dL (0.6-1.0) Estimated GFR (Cockcroft-Gault) 45.7 50.5 50.5 Glucose Level 124 mg/dL (70-99) 114 mg/dL (70-99) 96 mg/dL (70-99) Calcium Level 9.7 mg/dL (8.5-10.1) 10.1 mg/dL (8.5-10.1) 10.3 mg/dL (8.5-10.1) Urine Opiates Screen Neg (NEG) Urine Methadone Screen Neg (NEG) Urine Barbiturates Neg (NEG) Urine Phencyclidine Screen Neg (NEG) Urine Amphetamine/Methamphetamine Neg (NEG) Urine Benzodiazepines Screen Neg (NEG) Urine Cocaine Screen Neg (NEG) Urine Cannabinoids Screen Neg (NEG) Urine Ethyl Alcohol Neg (NEG) White Blood Count 3.9 x10^3/uL (4.0-11.0) Red Blood Count 3.14 x10^6/uL (3.50-5.40) Hemoglobin 10.2 g/dL (12.0-15.5) Hematocrit 30.1 % (36.0-47.0) Mean Corpuscular Volume 96 fL (79-100) Mean Corpuscular Hemoglobin 33 pg (25-35) Mean Corpuscular Hemoglobin Concent 34 g/dL (31-37) Red Cell Distribution Width 12.2 % (11.5-14.5) Platelet Count 324 x10^3/uL (140-400) Neutrophils (%) (Auto) 45 % (31-73) Lymphocytes (%) (Auto) 38 % (24-48) Monocytes (%) (Auto) 14 % (0-9) Eosinophils (%) (Auto) 1 % (0-3) Basophils (%) (Auto) 1 % (0-3) Neutrophils # (Auto) 1.8 x10^3/uL (1.8-7.7) Lymphocytes # (Auto) 1.5 x10^3/uL (1.0-4.8) Monocytes # (Auto) 0.6 x10^3/uL (0.0-1.1) Eosinophils # (Auto) 0.0 x10^3/uL (0.0-0.7) Basophils # (Auto) 0.0 x10^3/uL (0.0-0.2) BUN/Creatinine Ratio 22 (6-20) Magnesium Level 2.0 mg/dL (1.8-2.4) Total Bilirubin 0.2 mg/dL (0.2-1.0) Aspartate Amino Transf (AST/SGOT) 14 U/L (15-37) Alanine Aminotransferase (ALT/SGPT) 23 U/L (14-59) Alkaline Phosphatase 107 U/L (46-116) Total Protein 7.0 g/dL (6.4-8.2) Albumin 3.8 g/dL (3.4-5.0) Albumin/Globulin Ratio 1.2 (1.0-1.7) Cortisol AM Sample 15.0 ug/dL (4.3-22.4) Medications Current Medications Sodium Chloride 500 ml @ 500 mls/hr 1X ONCE IV Last administered on 04/25/20at 11:33; Start 04/25/20 at 11:00; Stop 04/25/20 at 11:59; Status DC Sodium Chloride 1,000 ml @ 75 mls/hr [id number] IV Last administered on 04/25/20at 18:25; Start 04/25/20 at 18:15; Stop 04/26/20 at 12:02; Status DC Sodium Chloride 1,000 ml @ 75 mls/hr [id number] IV ; Start 04/26/20 at 15:00; Stop 04/26/20 at 16:46; Status DC Magnesium Sulfate 50 ml @ 25 mls/hr 1X ONCE IV ; Start 04/26/20 at 15:15; Stop 04/26/20 at 16:46; Status DC Magnesium Oxide (Magnesium Oxide) 400 mg DAILY PO Last administered on 04/27/20at 09:14; Start 04/26/20 at 17:00 Active Scripts Active Reported Dyazide 37.5-25 Capsule (Triamterene/Hydrochlorothiazid) 1 Each Capsule 1 Cap PO DAILY Lisinopril 40 Mg Tablet 40 Mg PO DAILY Lisinopril 10 Mg Tablet 1 Tab PO DAILY Vitals/I & O Vital Sign - Last 24 Hours 04/26/20 04/26/20 04/26/20 04/27/20 12:00 17:00 20:00 01:00 Temp 98.5 98.2 98.5 98.5 98.2 98.5 Pulse 62 78 81 Resp 18 B/P (MAP) 86/45 (59) 89/60 (70) 107/49 (68) 117/41 (66) Pulse Ox 98 99 100 O2 Delivery Room Air Room Air Room Air Room Air 04/27/20 04/27/20 04/27/20 04:52 06:12 10:35 Temp 98.4 97.9 98.4 98.4 97.9 98.4 Pulse 71 67 61 Resp 18 18 18 B/P (MAP) 88/58 (68) 82/46 (58) 79/47 (58) Pulse Ox 100 100 100 O2 Delivery Room Air Room Air Room Air Intake and Output 04/26/20 04/26/20 04/27/20 15:00 23:00 07:00 Intake Total 1395 ml 250 ml 800 ml Output Total 300 ml Balance 1395 ml -50 ml 800 ml Justicifation of Admission Dx: Justifications for Admission: Justification of Admission Dx: Yes SHERIE LIM MD Apr 27, 2020 10:50
--- NOTE | 2020-04-27 12:23 | PDOC2 ---
GEOFF COLBY RECYCLING OPERATOR 04/27/20 1223: CARDIAC CONSULT DATE OF CONSULT Date of Consult DATE: 04/27/20 TIME: 12:17 REASON FOR CONSULT Reason for Consult: hypotension, hypercalcemia, anemia REFERRING PHYSICIAN Referring Physician: Dr. Verde SOURCE Source: Chart review, Patient HISTORY OF PRESENT ILLNESS HISTORY OF PRESENT ILLNESS This is a 59 yo female who was referred to the ED for evaluation of hyponatremi a. Was noted to by hypotensive, which prompted this consult. Patient reports feeling weak/tired for the last 5-7 days. No chest pain, palpitations, dizziness, diaphoresis, palpitations, or nausea/vomiting. No changing in eating habits or weight loss. Was previously on triamterene/HCTZ and ACEi at home for HTN. PAST MEDICAL HISTORY Cardiovascular: HTN PAST SURGICAL HISTORY Past Surgical History: No pertinent history FAMILY HISTORY Family History: Hypertension SOCIAL HISTORY Smoke: No ALCOHOL: social Drugs: None Lives: with Family CURRENT MEDICATIONS CURRENT MEDICATIONS Current Medications Medications (Trade) Dose Ordered Sig/Quynh Route PRN Reason Start Time Stop Time Status Last Admin Dose Admin Magnesium Oxide (Magnesium Oxide) 400 mg DAILY PO 04/26/20 17:00 04/27/20 09:14 ALLERGIES ALLERGIES: Coded Allergies: Iodinated Contrast Media (Verified Allergy, Intermediate, Itching, ) malt extract (Verified Allergy, Intermediate, Itching, 04/25/20) ROS Review of System 14 point ROS conducted with pertinent positives noted above in hPI PHYSICAL EXAM General: Alert, Oriented X3, Cooperative, No acute distress HEENT: Atraumatic, Mucous membr. moist/pink Lungs: Clear to auscultation, Normal air movement Heart: Regular rate, Normal S1, Normal S2 Abdomen: Normal bowel sounds, No tenderness Extremities: No edema, Normal pulses Skin: No significant lesion Neuro: Normal speech, Sensation intact Psych/Mental Status: Mental status NL, Mood NL MUSCULOSKELETAL: Osteoarthritic changes both hands VITALS/I&O VITALS/I&O: Vital Signs Date Time Temp Pulse Resp B/P (MAP) Pulse Ox O2 Delivery O2 Flow Rate FiO2 04/27/20 10:35 98.4 61 18 79/47 (58) 100 Room Air 98.4 I & O 04/26/20 04/26/20 04/27/20 15:00 23:00 07:00 Intake Total 1395 ml 250 ml 800 ml Output Total 300 ml Balance 1395 ml -50 ml 800 ml LABS Lab: Laboratory Tests Test 04/26/20 16:30 04/26/20 17:25 04/26/20 20:45 04/27/20 04:18 Sodium Level 120 mmol/L (136-145) *L 124 mmol/L (136-145) L 126 mmol/L (136-145) L Potassium Level 4.6 mmol/L (3.5-5.1) 5.1 mmol/L (3.5-5.1) 5.1 mmol/L (3.5-5.1) Chloride Level 93 mmol/L (98-107) L 96 mmol/L (98-107) L 97 mmol/L (98-107) L Carbon Dioxide Level 24 mmol/L (21-32) 22 mmol/L (21-32) 22 mmol/L (21-32) Anion Gap 3 (6-14) L 6 (6-14) 7 (6-14) Blood Urea Nitrogen 28 mg/dL (7-20) H 27 mg/dL (7-20) H 24 mg/dL (7-20) H Creatinine 1.2 mg/dL (0.6-1.0) H 1.1 mg/dL (0.6-1.0) H 1.1 mg/dL (0.6-1.0) H Estimated GFR (Cockcroft-Gault) 45.7 50.5 50.5 Glucose Level 124 mg/dL (70-99) H 114 mg/dL (70-99) H 96 mg/dL (70-99) Calcium Level 9.7 mg/dL (8.5-10.1) 10.1 mg/dL (8.5-10.1) 10.3 mg/dL (8.5-10.1) H Urine Opiates Screen Neg (NEG) Urine Methadone Screen Neg (NEG) Urine Barbiturates Neg (NEG) Urine Phencyclidine Screen Neg (NEG) Urine Amphetamine/Methamphetamine Neg (NEG) Urine Benzodiazepines Screen Neg (NEG) Urine Cocaine Screen Neg (NEG) Urine Cannabinoids Screen Neg (NEG) Urine Ethyl Alcohol Neg (NEG) White Blood Count 3.9 x10^3/uL (4.0-11.0) L Red Blood Count 3.13 x10^6/uL (3.50-5.70) L Hemoglobin 10.2 g/dL (12.0-15.5) L Hematocrit 30.1 % (36.0-47.0) L Mean Corpuscular Volume 96 fL (79-100) Mean Corpuscular Hemoglobin 33 pg (25-35) Mean Corpuscular Hemoglobin Concent 34 g/dL (31-37) Red Cell Distribution Width 12.2 % (11.5-14.5) Platelet Count 324 x10^3/uL (140-400) Neutrophils (%) (Auto) 45 % (31-73) Lymphocytes (%) (Auto) 38 % (24-48) Monocytes (%) (Auto) 14 % (0-9) H Eosinophils (%) (Auto) 1 % (0-3) Basophils (%) (Auto) 1 % (0-3) Neutrophils # (Auto) 1.8 x10^3/uL (1.8-7.7) Lymphocytes # (Auto) 1.5 x10^3/uL (1.0-4.8) Monocytes # (Auto) 0.6 x10^3/uL (0.0-1.1) Eosinophils # (Auto) 0.0 x10^3/uL (0.0-0.7) Basophils # (Auto) 0.0 x10^3/uL (0.0-0.2) Absolute Reticulocyte Count 0.021 x10^6/uL (0.020-0.120) Percent Reticulocyte Count 0.7 % (0.5-2.3) Immature Reticulocyte Fraction 0.18 (0.20-0.60) L BUN/Creatinine Ratio 22 (6-20) H Magnesium Level 2.0 mg/dL (1.8-2.4) Total Bilirubin 0.2 mg/dL (0.2-1.0) Aspartate Amino Transferase (AST) 14 U/L (15-37) L Alanine Aminotransferase (ALT) 23 U/L (14-59) Alkaline Phosphatase 107 U/L (46-116) Total Protein 7.0 g/dL (6.4-8.2) Albumin 3.8 g/dL (3.4-5.0) Albumin/Globulin Ratio 1.2 (1.0-1.7) Cortisol AM Sample 15.0 ug/dL (4.3-22.4) Test 04/27/20 11:25 Ionized Calcium 1.59 mmol/L (1.13-1.32) H Laboratory Tests 04/27/20 04:18 Laboratory Tests 04/26/20 16:30 04/26/20 20:45 04/27/20 04:18 ASSESSMENT/PLAN ASSESSMENT/PLAN 1. Hyponatremia; improving with IVF. Cortisol normal, TSH normal. Urine lytes and osm pending 2. JOSUE 3. Hypomagnesmia; replaced 4. H/o hypertension with present hypotension; BP remains low end. 5. Hypercalcemia; improved Recommendations Hold HCTZ and ACEi Echo ordered Will give additional NS fluid bolus as BP remains low. Supportive care Follow renal recs ALLYN CHENG MD 04/28/20 1135: CARDIAC CONSULT ASSESSMENT/PLAN ASSESSMENT/PLAN Patient seen and examined on 04/27/20. Hyponatremia. Improving. Work-up as above. Acute kidney injury. Normal saline as noted above. Continuing to monitor lab. History of hypertension. Blood pressure borderline. Fluids as above. Echocardiogram. Hypomagnesemia replaced. Hypercalcemia. Improving as noted above. Thank you for allowing us to participate in the care of your patient. GEOFF COLBY ARMOND Apr 27, 2020 12:23 ALLYN CHENG MD Apr 28, 2020 11:35
[2020-04-27] MEDS ORDERED: IV NORMAL SALINE 500ML BAG 500 ML IV ONE (13:15)
--- NOTE | 2020-04-27 13:24 | NUR ---
SS following for discharge planning. SS reviewed pt chart and discussed with pt RN. Pt is from home with spouse and is currently on room air. SS will continue to follow for discharge planning.
--- NOTE | 2020-04-27 15:45 | RAD ---
CT ABDOMEN PELVIS WO CONTRAST INDICATION: HYPERCALCEMIA, ANEMIA EXAM: Noncontrast CT of the abdomen and pelvis. Coronal and sagittal reformatted images were performed. PQRS compliance statement: One or more of the following individualized dose reduction techniques were utilized for this examination: 1. Automated exposure control 2. Adjustment of the mA and/or kV according to patient size 3. Use of iterative reconstruction technique COMPARISON: None FINDINGS: No free air, free fluid, or fluid collection. Lower chest: The visualized lower lungs are aerated. No pleural or pericardial effusion. ABDOMEN: Liver: The noncontrast liver is homogeneous in attenuation. Gallbladder and biliary: Normal gallbladder without radiopaque stone. Normal caliber bile ducts. Spleen: Normal spleen. Pancreas: The noncontrast pancreas is homogeneous in attenuation without peripancreatic inflammatory changes. Adrenal glands: Normal adrenal glands. Kidneys and ureters: No opaque urinary calculi. Normal kidneys and ureters. GI tract: The stomach is decompressed and poorly evaluated. Normal caliber small bowel and colon. Normal appendix. Vascular structures: Normal caliber abdominal aorta. Mild aortoiliac atherosclerotic disease. Lymph nodes: No lymphadenopathy in the abdomen or pelvis. PELVIS: Genitourinary system: Normal bladder. Calcified uterine fibroid. SKELETAL STRUCTURES AND SOFT TISSUES: No fracture or destructive lesion in the visualized skeleton. IMPRESSION: No acute findings. No mass or lymphadenopathy. Electronically signed by: Ibrahima Flowers MD (04/27/2020 3:42 PM) [id number]
[2020-04-27 15:54] LABS: CALCIUM 10.4 mg/dL (8.5-10.1); CREATININE 1.5 mg/dL (0.6-1.0); GFR 35.3; POTASSIUM 4.7 mmol/L (3.5-5.1)
--- NOTE | 2020-04-27 16:07 | CARD ---
MR#: [id number] Date of Study: 04/27/2020 Ordering Physician: SHERIE LIM, Referring Physician: SHERIE LIM, Tech: Shilpa Angelo RDCS APPROVED REPORT EXAM: Two-dimensional and M-mode echocardiogram with Doppler and color Doppler. Other Information Quality : Good INDICATION Hypotension 2D DIMENSIONS Left Atrium(2D)3.0 (1.6-4.0cm)IVSd0.8 (0.7-1.1cm) Aortic Root(2D)2.8 (2.0-3.7cm)LVDd4.3 (3.9-5.9cm) LVOT Diameter2.0 (1.8-2.4cm)PWd1.0 (0.7-1.1cm) LVDs2.0 (2.5-4.0cm)FS (%) 30.0 % SV70.5 mlLVEF(%)60.0 (>50%) Aortic Valve AoV Peak Aditya.133.6cm/sAoV VTI20.8cm AO Peak GR.7.1mmHgLVOT Peak Aditya.112.8cm/s AO Mean GR.4mmHgAVA (VMAX)2.53cm2 DANIE (VTI)2.40cm2 Mitral Valve MV E Fbxsyvnn41.3cm/sMV DECEL LDJE030vc MV A Abdcwyof90.3cm/sE/A Ratio0.8 Tricuspid Valve TR P. Swpxqgjv297cd/sRAP OHDLZAMW7rqQg TR Peak Gr.38iwJkGOCY25vcWu Pulmonary Vein S1 Tizvlmus13.6cm/sD2 Hkomzwxz37.8cm/s LEFT VENTRICLE The left ventricle is normal size. There is normal left ventricular wall thickness. The left ventricu lar systolic function is normal and the ejection fraction is within normal range. The Ejection Fracti on is 55-60%. There is normal LV segmental wall motion. Transmitral Doppler flow pattern is Grade I-a bnormal relaxation pattern. RIGHT VENTRICLE The right ventricle is normal size. The right ventricular systolic function is normal. ATRIA The left atrium size is normal. The right atrium size is normal. The interatrial septum is intact wit h no evidence for an atrial septal defect or patent foramen ovale as noted on 2-D or Doppler imaging. AORTIC VALVE The aortic valve is calcified but opens well. Doppler and Color Flow revealed no significant aortic r egurgitation. There is no significant aortic valvular stenosis. MITRAL VALVE The mitral valve is normal in structure and function. There is no evidence of mitral valve prolapse. There is no mitral valve stenosis. Doppler and Color-flow revealed trace mitral regurgitation. TRICUSPID VALVE The tricuspid valve is normal in structure and function. Doppler and Color Flow revealed trace tricus pid regurgitation. The PA pressure was estimated at 26 mmHg. There is no tricuspid valve stenosis. PULMONIC VALVE The pulmonary valve is normal in structure and function. Doppler and Color Flow revealed trace pulmon ic valvular regurgitation. There is no pulmonic valvular stenosis. GREAT VESSELS The aortic root is normal in size. The ascending aorta is not well seen. The IVC is normal in size an d collapses >50% with inspiration. PERICARDIAL EFFUSION There is no evidence of significant pericardial effusion. Critical Notification Critical Value: No <Conclusion> The left ventricle is normal size. The left ventricular systolic function is normal and the ejection fraction is within normal range. The Ejection Fraction is 55-60%. Doppler and Color Flow revealed no significant aortic regurgitation. There is no significant aortic valvular stenosis. Doppler and Color-flow revealed trace mitral regurgitation. Doppler and Color Flow revealed trace tricuspid regurgitation. The PA pressure was estimated at 26 mmHg. Signed by : Alvarez Beach MD Electronically Approved : 04/27/2020 16:07:37
[2020-04-27 16:13] LABS: BILIRUBIN,URINE NEGATIVE (NEG); CLARITY,URINE CLEAR; COLOR,URINE YELLOW; NITRITE,URINE NEGATIVE (NEG); PH,URINE 5.5 (<5.0-8.0); PROTEIN,URINE NEGATIVE (NEG-TRACE); UROBILINOGEN,URINE 0.2 mg/dL (0.2 mg/dL)
[2020-04-27 16:19] LABS: HYALINE CASTS, URINE MODERATE /HPF; SQUAMOUS EPITHELIAL CELL,UR FEW /LPF
[2020-04-27 16:20] LABS: BACTERIA,URINE FEW /HPF (0-FEW); WBC,URINE 20-40 /HPF (0-4)
[2020-04-27 22:25] LABS: CALCIUM 9.9 mg/dL (8.5-10.1); CREATININE 1.5 mg/dL (0.6-1.0); GFR 35.3; POTASSIUM 4.4 mmol/L (3.5-5.1)
[2020-04-28] VITALS (8 sets, daily range): BP systolic 63–110; BP diastolic 33–63
[2020-04-28 05:11] LABS: CALCIUM PTH 11.2 mg/dL (8.7-10.3); CREATININE PTH 1.22 mg/dL (0.57-1.00); PHOSPHORUS PTH 2.8 mg/dL (3.0-4.3); PTH INTACT 74 pg/mL (15-65)
[2020-04-28 08:13] LABS: ALBUMIN 3.5 g/dL (3.4-5.0); ALBUMIN/GLOBULIN RATIO 0.9 (1.0-1.7); CALCIUM 10.5 mg/dL (8.5-10.1); CREATININE 1.3 mg/dL (0.6-1.0); GFR 41.6; POTASSIUM 4.8 mmol/L (3.5-5.1); TOTAL BILIRUBIN 0.3 mg/dL (0.2-1.0); TOTAL PROTEIN 7.3 g/dL (6.4-8.2)
--- NOTE | 2020-04-28 09:22 | PDOC ---
DATE OF SERVICE DATE: 04/28/20 TIME: 09:22 SUBJECTIVE ROS c/o chills this am , states had fever earlier today Denies any SOB, No dizziness, No symptoms of UTI, No N/V/D OBJECTIVE Vital Signs Vital Signs Date Time Temp Pulse Resp B/P (MAP) Pulse Ox O2 Delivery O2 Flow Rate FiO2 04/28/20 08:25 Room Air 04/28/20 07:00 98.1 89 18 84/48 (60) 97 98.1 I & 0 Intake and Output 04/28/20 07:00 Intake Total 2400 ml Output Total 750 ml Balance 1650 ml Intake Oral 1900 ml IV Total 500 ml Output Urine Total 750 ml # Voids 2 PHYSICAL EXAM Physical Exam General: Alert, Oriented X3, Cooperative, No acute distress HEENT: PERRLA Lungs: Clear to auscultation, Normal air movement Heart: Regular rate Abdomen: Normal bowel sounds, Soft, No tenderness Extremities: No cyanosis, No edema Skin: No rash Neuro: Normal speech, Sensation intact - No lilly DIAGNOSIS/ASSESSMENT Assessment & Plan Hyponatremia- severe -114 at presentation Was on HCTZ , held, Improving with IVF to 129 this am Restrict PO fluids , Repeat IV NS 500 ml Bolus today Ur and serum Osm pending ,Strict UOP , Daily BMP Fever/Chills this am UA has WBC's, defer to primary Low Mg- replaced HyperCalcemia- mildly elevated, recommend alicea for Paraproteinemia Anemia and Low WBC- recommend Hem/onc Hypotension- since presentation, fluid bolus as above At home on antohypertesnives- CHARLES-I and HCTZ Dw Pt and RN COMMENT/RELEVANT DATA Meds Current Medications Medications (Trade) Dose Ordered Sig/Quynh Start Time Stop Time Status Last Admin Dose Admin Magnesium Oxide (Magnesium Oxide) 400 mg DAILY 04/26/20 17:00 04/27/20 09:14 400 MG Magnesium Sulfate 50 ml @ 25 mls/hr 1X ONCE 04/26/20 15:15 04/26/20 16:46 DC Sodium Chloride 500 ml @ 500 mls/hr 1X ONCE 04/27/20 13:15 04/27/20 14:14 DC 04/27/20 13:15 500 MLS/HR Lab Laboratory Tests Test 04/27/20 11:25 04/27/20 14:20 04/27/20 15:55 04/27/20 22:02 Estimated GFR (Non- 48 (>59) Ionized Calcium 1.59 mmol/L (1.13-1.32) Iron Level 37 ug/dL (50-170) Total Iron Binding Capacity 364 ug/dL (250-450) Iron Saturation 10 % (15-34) EGFR 55 (>59) Vitamin B12 Level 795 pg/mL (247-911) PTH (Intact) Specimen Description Comment (.) Parathyroid Hormone (Intact) 74 pg/mL (15-65) Calcium (PTH Intact) 11.2 mg/dL (8.7-10.3) Creatinine (PTH Intact) 1.22 mg/dL (0.57-1.00) Phosphorus (PTH Intact) 2.8 mg/dL (3.0-4.3) Haptoglobin 169 mg/dL (37-355) Sodium Level 128 mmol/L (136-145) 129 mmol/L (136-145) Potassium Level 4.7 mmol/L (3.5-5.1) 4.4 mmol/L (3.5-5.1) Chloride Level 96 mmol/L (98-107) 97 mmol/L (98-107) Carbon Dioxide Level 24 mmol/L (21-32) 25 mmol/L (21-32) Anion Gap 8 (6-14) 7 (6-14) Blood Urea Nitrogen 27 mg/dL (7-20) 27 mg/dL (7-20) Creatinine 1.5 mg/dL (0.6-1.0) 1.5 mg/dL (0.6-1.0) Estimated GFR (Cockcroft-Gault) 35.3 35.3 Glucose Level 105 mg/dL (70-99) 132 mg/dL (70-99) Calcium Level 10.4 mg/dL (8.5-10.1) 9.9 mg/dL (8.5-10.1) Lactate Dehydrogenase 141 U/L (81-234) Urine Collection Type Unknown Urine Color Yellow Urine Clarity Clear Urine pH 5.5 (<5.0-8.0) Urine Specific [place] 1.010 (1.000-1.030) Urine Protein Negative mg/dL (NEG-TRACE) Urine Glucose (UA) Negative mg/dL (NEG) Urine Ketones (Stick) Negative mg/dL (NEG) Urine Blood Negative (NEG) Urine Nitrite Negative (NEG) Urine Bilirubin Negative (NEG) Urine Urobilinogen Dipstick 0.2 mg/dL (0.2 mg/dL) Urine Leukocyte Esterase Moderate (NEG) Urine RBC 1-2 /HPF (0-2) Urine WBC 20-40 /HPF (0-4) Urine Squamous Epithelial Cells Few /LPF Urine Transitional Epithelial Cells Few /LPF Urine Bacteria Few /HPF (0-FEW) Urine Hyaline Casts Moderate /HPF Urine Mucus Mod /LPF Test 04/28/20 07:35 Sodium Level 129 mmol/L (136-145) Potassium Level 4.8 mmol/L (3.5-5.1) Chloride Level 99 mmol/L (98-107) Carbon Dioxide Level 22 mmol/L (21-32) Anion Gap 8 (6-14) Blood Urea Nitrogen 20 mg/dL (7-20) Creatinine 1.3 mg/dL (0.6-1.0) Estimated GFR (Cockcroft-Gault) 41.6 BUN/Creatinine Ratio 15 (6-20) Glucose Level 101 mg/dL (70-99) Calcium Level 10.5 mg/dL (8.5-10.1) Total Bilirubin 0.3 mg/dL (0.2-1.0) Aspartate Amino Transf (AST/SGOT) 15 U/L (15-37) Alanine Aminotransferase (ALT/SGPT) 21 U/L (14-59) Alkaline Phosphatase 98 U/L (46-116) Total Protein 7.3 g/dL (6.4-8.2) Albumin 3.5 g/dL (3.4-5.0) Albumin/Globulin Ratio 0.9 (1.0-1.7) Results All relevant outside records, renal labs, imaging studies, telemetry/EKG's were reviewed. Justicifation of Admission Dx: Justifications for Admission: Justification of Admission Dx: Yes JEFFERSON OLSEN MD Apr 28, 2020 09:22
[2020-04-28] MEDS: MAGNESIUM OXIDE 400 MG TABLET PO SCH (09:35)
--- NOTE | 2020-04-28 10:17 | NUR ---
Pt reports to this RN that she's having chills and "just cant seem to get warm." This RN took pt's temperature, [address] Edgardo schmitt. Orders received to start Rocephin 1 gm IV Q24, Tylenol 650 mg Q6 PRN, and consult ID.
--- NOTE | 2020-04-28 10:53 | PDOC ---
[facility] PROGRESS NOTE Date of Service DOS: DATE: 04/28/20 TIME: 10:41 Chief Complaint Chief Complaint Hyponatremia History of Present Illness History of Present Illness 04/28/2020 Patient seen and examined Patient was walking around, NAD Discussed with RN Discussed with case management Reviewed chart Spiked a fever - ordered rocephin 1 g IV q24h Await ID Consult Sodium levels are still low at 129 Identification/Chief Complaint Chief Complaint cc ========= 59 yo AA F past medical history of hypertension, presents to the ED sent in by her primary care physician Dr. Acosta with concern for hyponatremia, sodium 115 that was drawn yesterday urine and serum osmolality pending as well as serum cortisol Past Medical History Cardiovascular: HTN Family History Family History: Hypertension Social History Smoke: No ALCOHOL: none Drugs: None Vitals/I&O Vitals/I&O: Vital Signs Date Time Temp Pulse Resp B/P (MAP) Pulse Ox O2 Delivery O2 Flow Rate FiO2 04/28/20 08:25 Room Air 04/28/20 07:00 98.1 89 18 84/48 (60) 97 98.1 I & O 04/27/20 04/27/20 04/28/20 15:00 23:00 07:00 Intake Total 1500 ml 900 ml Output Total 750 ml Balance 750 ml 900 ml Physical Exam General: Alert, Oriented X3, Cooperative, No acute distress Heart: Regular rate, Normal S1, Normal S2 Lungs: Clear Abdomen: Normal bowel sounds, No tenderness Extremities: No edema, Normal pulses Skin: No significant lesion Labs Labs: Laboratory Tests Test 04/27/20 11:25 04/27/20 14:20 04/27/20 15:55 04/27/20 22:02 Estimated GFR (Non- 48 (>59) Ionized Calcium 1.59 mmol/L (1.13-1.32) Iron Level 37 ug/dL (50-170) Total Iron Binding Capacity 364 ug/dL (250-450) Iron Saturation 10 % (15-34) EGFR 55 (>59) Vitamin B12 Level 795 pg/mL (247-911) PTH (Intact) Specimen Description Comment (.) Parathyroid Hormone (Intact) 74 pg/mL (15-65) Calcium (PTH Intact) 11.2 mg/dL (8.7-10.3) Creatinine (PTH Intact) 1.22 mg/dL (0.57-1.00) Phosphorus (PTH Intact) 2.8 mg/dL (3.0-4.3) Haptoglobin 169 mg/dL (37-355) Sodium Level 128 mmol/L (136-145) 129 mmol/L (136-145) Potassium Level 4.7 mmol/L (3.5-5.1) 4.4 mmol/L (3.5-5.1) Chloride Level 96 mmol/L (98-107) 97 mmol/L (98-107) Carbon Dioxide Level 24 mmol/L (21-32) 25 mmol/L (21-32) Anion Gap 8 (6-14) 7 (6-14) Blood Urea Nitrogen 27 mg/dL (7-20) 27 mg/dL (7-20) Creatinine 1.5 mg/dL (0.6-1.0) 1.5 mg/dL (0.6-1.0) Estimated GFR (Cockcroft-Gault) 35.3 35.3 Glucose Level 105 mg/dL (70-99) 132 mg/dL (70-99) Calcium Level 10.4 mg/dL (8.5-10.1) 9.9 mg/dL (8.5-10.1) Lactate Dehydrogenase 141 U/L (81-234) Urine Collection Type Unknown Urine Color Yellow Urine Clarity Clear Urine pH 5.5 (<5.0-8.0) Urine Specific [place] 1.010 (1.000-1.030) Urine Protein Negative mg/dL (NEG-TRACE) Urine Glucose (UA) Negative mg/dL (NEG) Urine Ketones (Stick) Negative mg/dL (NEG) Urine Blood Negative (NEG) Urine Nitrite Negative (NEG) Urine Bilirubin Negative (NEG) Urine Urobilinogen Dipstick 0.2 mg/dL (0.2 mg/dL) Urine Leukocyte Esterase Moderate (NEG) Urine RBC 1-2 /HPF (0-2) Urine WBC 20-40 /HPF (0-4) Urine Squamous Epithelial Cells Few /LPF Urine Transitional Epithelial Cells Few /LPF Urine Bacteria Few /HPF (0-FEW) Urine Hyaline Casts Moderate /HPF Urine Mucus Mod /LPF Test 04/28/20 07:35 Sodium Level 129 mmol/L (136-145) Potassium Level 4.8 mmol/L (3.5-5.1) Chloride Level 99 mmol/L (98-107) Carbon Dioxide Level 22 mmol/L (21-32) Anion Gap 8 (6-14) Blood Urea Nitrogen 20 mg/dL (7-20) Creatinine 1.3 mg/dL (0.6-1.0) Estimated GFR (Cockcroft-Gault) 41.6 BUN/Creatinine Ratio 15 (6-20) Glucose Level 101 mg/dL (70-99) Calcium Level 10.5 mg/dL (8.5-10.1) Total Bilirubin 0.3 mg/dL (0.2-1.0) Aspartate Amino Transf (AST/SGOT) 15 U/L (15-37) Alanine Aminotransferase (ALT/SGPT) 21 U/L (14-59) Alkaline Phosphatase 98 U/L (46-116) Total Protein 7.3 g/dL (6.4-8.2) Albumin 3.5 g/dL (3.4-5.0) Albumin/Globulin Ratio 0.9 (1.0-1.7) Review of Systems Review of Systems: Denies pain Denies weakness Assessment and Plan Assessmemt and Plan Problems Medical Problems: (1) JOSUE (acute kidney injury) Status: Acute (2) Hypomagnesemia Status: Acute (3) Hyponatremia Status: Acute 1. 59 yo AA F past medical history of hypertension, presents with concern for hyponatremia, sodium 114 on admission 2. severe hyponatremia 3. mild hypercalcemia 4. normocytic anemia 5. hypomagnesemia 6. possible adrenal insufficiency 7. hypercalcemia ? OCCULT MALIGNANCY Plan Slow correction of Na, currently 129 trending upwards serum osmolality urine osmolality random urine na fluid restrict bmp q 8 hrs replace mg dvt prophylaxis Home meds AM, PM CORTISOL avoid overcorrection, too fast d/c iv fluids fluid restrict 1800 cc/24 hrs fe panel retic count ionized ca parathyroid hormone level serum and urine immunofixation IGG, IGA, IGM results pending Awaiting HEME CONSULT Full code Comment Review of Relevant I have reviewed the following items mickey (where applicable) has been applied. Medications: Current Medications Medications (Trade) Dose Ordered Sig/Quynh Route PRN Reason Start Time Stop Time Status Last Admin Dose Admin Sodium Chloride 500 ml @ 500 mls/hr 1X ONCE IV 04/27/20 13:15 04/27/20 14:14 DC 04/27/20 13:15 Justifications for Admission Other Justification SARMAD ADAMSON III DO Apr 28, 2020 10:53
[2020-04-28] MEDS ORDERED: cefTRIAXone IV Push 1 GM VIAL. IVP SCH (11:00)
[2020-04-28] MEDS: ACETAMINOPHEN 325 MG TABLET. PO PRN ×2 (11:04→18:03)
[2020-04-28] MEDS ORDERED: IV NORMAL SALINE 500ML BAG 500 ML IV ONE (11:30)
--- NOTE | 2020-04-28 13:25 | PDOC ---
Infectious Disease Note Vital Signs: Vital Signs Vital Signs Date Time Temp Pulse Resp B/P (MAP) Pulse Ox O2 Delivery O2 Flow Rate FiO2 04/28/20 12:44 100.4 100.4 04/28/20 10:50 93 20 110/63 (79) 99 Room Air Medications: Inpatient Meds: Current Medications Medications (Trade) Dose Ordered Sig/Quynh Start Time Stop Time Status Last Admin Dose Admin Acetaminophen (Tylenol) 650 mg PRN Q6HRS PRN 04/28/20 10:30 04/28/20 11:04 650 MG Ceftriaxone Sodium (Rocephin) 1 gm Q24H 04/28/20 11:00 04/28/20 11:04 1 GM Magnesium Oxide (Magnesium Oxide) 400 mg DAILY 04/26/20 17:00 04/28/20 09:35 400 MG Magnesium Sulfate 50 ml @ 25 mls/hr 1X ONCE 04/26/20 15:15 04/26/20 16:46 DC Sodium Chloride 500 ml @ 500 mls/hr 1X ONCE 04/28/20 11:30 04/28/20 12:29 DC 04/28/20 11:49 500 MLS/HR Labs: Lab Laboratory Tests Test 04/27/20 14:20 04/27/20 15:55 04/27/20 22:02 04/28/20 07:35 Haptoglobin 169 mg/dL (37-355) Sodium Level 128 mmol/L (136-145) 129 mmol/L (136-145) 129 mmol/L (136-145) Potassium Level 4.7 mmol/L (3.5-5.1) 4.4 mmol/L (3.5-5.1) 4.8 mmol/L (3.5-5.1) Chloride Level 96 mmol/L (98-107) 97 mmol/L (98-107) 99 mmol/L (98-107) Carbon Dioxide Level 24 mmol/L (21-32) 25 mmol/L (21-32) 22 mmol/L (21-32) Anion Gap 8 (6-14) 7 (6-14) 8 (6-14) Blood Urea Nitrogen 27 mg/dL (7-20) 27 mg/dL (7-20) 20 mg/dL (7-20) Creatinine 1.5 mg/dL (0.6-1.0) 1.5 mg/dL (0.6-1.0) 1.3 mg/dL (0.6-1.0) Estimated GFR (Cockcroft-Gault) 35.3 35.3 41.6 Glucose Level 105 mg/dL (70-99) 132 mg/dL (70-99) 101 mg/dL (70-99) Calcium Level 10.4 mg/dL (8.5-10.1) 9.9 mg/dL (8.5-10.1) 10.5 mg/dL (8.5-10.1) Lactate Dehydrogenase 141 U/L (81-234) Urine Collection Type Unknown Urine Color Yellow Urine Clarity Clear Urine pH 5.5 (<5.0-8.0) Urine Specific [place] 1.010 (1.000-1.030) Urine Protein Negative mg/dL (NEG-TRACE) Urine Glucose (UA) Negative mg/dL (NEG) Urine Ketones (Stick) Negative mg/dL (NEG) Urine Blood Negative (NEG) Urine Nitrite Negative (NEG) Urine Bilirubin Negative (NEG) Urine Urobilinogen Dipstick 0.2 mg/dL (0.2 mg/dL) Urine Leukocyte Esterase Moderate (NEG) Urine RBC 1-2 /HPF (0-2) Urine WBC 20-40 /HPF (0-4) Urine Squamous Epithelial Cells Few /LPF Urine Transitional Epithelial Cells Few /LPF Urine Bacteria Few /HPF (0-FEW) Urine Hyaline Casts Moderate /HPF Urine Mucus Mod /LPF BUN/Creatinine Ratio 15 (6-20) Total Bilirubin 0.3 mg/dL (0.2-1.0) Aspartate Amino Transf (AST/SGOT) 15 U/L (15-37) Alanine Aminotransferase (ALT/SGPT) 21 U/L (14-59) Alkaline Phosphatase 98 U/L (46-116) Total Protein 7.3 g/dL (6.4-8.2) Albumin 3.5 g/dL (3.4-5.0) Albumin/Globulin Ratio 0.9 (1.0-1.7) 25-Hydroxy Vitamin D Total 10.7 ng/mL (30-100) Objective: Assessment: Pt seen and examined ID consult dictated [id number] Plan: Plan of Care Cont nathan for now lisa dc piv local care of lt hand f/u labs and cults Thank you SAMANTHA SHULTZ MD Apr 28, 2020 13:25
--- NOTE | 2020-04-28 13:32 | NUR ---
SS following up with discharge planning. SS reviewed pt chart and discussed with pt RN. Pt is from home with spouse and is currently on room air. Pt on IV Rocephin. SS will continue to follow for discharge planning.
--- NOTE | 2020-04-28 14:09 | PDOC2 ---
CONSULT Date of Consult Date of Consult DATE: 04/27/20 TIME: 13:52 Reason for Consult Reason for Consult: Anemia and hypercalcemia Referring Physician Referring Physician: Dr Reynoso Identification/Chief Complaint Chief Complaint Hyponatremia Source Source: Chart review, Patient History of Present Illness Reason for Visit: Janey Kowalski is a 59 year old female who has been admitted for further evaluation and management of hyponatremia. She takes HCTZ for HTN. She reports feeling dizzy recently. She received further evaluation with lab work at her PC's office. This showed hyponatremia. She was asked to go the hospital for further maangement. Her initial lab evaluation here showed JOSUE, hyponatremia, hypercalcemia and anemia. She reports being told that she has had anemia in the past by her PCP Dr Torres. She denies bloody stools, hematemesis, melena, vaginal bleeding. She denies recent change in appetite or weight. She denies fever, chills, night sweats. She denies any new bone pain. Past Medical History Cardiovascular: HTN Past Surgical History Past Surgical History: No pertinent history Family History Family History: Hypertension Social History No ALCOHOL: social Drugs: None Lives: with Family Current Problem List Problem List Problems Medical Problems: (1) JOSUE (acute kidney injury) Status: Acute (2) Hypomagnesemia Status: Acute (3) Hyponatremia Status: Acute Current Medications Current Medications Current Medications Sodium Chloride 500 ml @ 500 mls/hr 1X ONCE IV Last administered on 04/25/20at 11:33; Start 04/25/20 at 11:00; Stop 04/25/20 at 11:59; Status DC Sodium Chloride 1,000 ml @ 75 mls/hr [id number] IV Last administered on 04/25/20at 18:25; Start 04/25/20 at 18:15; Stop 04/26/20 at 12:02; Status DC Sodium Chloride 1,000 ml @ 75 mls/hr [id number] IV ; Start 04/26/20 at 15:00; Stop 04/26/20 at 16:46; Status DC Magnesium Sulfate 50 ml @ 25 mls/hr 1X ONCE IV ; Start 04/26/20 at 15:15; Stop 04/26/20 at 16:46; Status DC Magnesium Oxide (Magnesium Oxide) 400 mg DAILY PO Last administered on 04/28/20at 09:35; Start 04/26/20 at 17:00 Sodium Chloride 500 ml @ 500 mls/hr 1X ONCE IV Last administered on 04/27/20at 13:15; Start 04/27/20 at 13:15; Stop 04/27/20 at 14:14; Status DC Ceftriaxone Sodium (Rocephin) 1 gm Q24H IVP Last administered on 04/28/20at 11:04; Start 04/28/20 at 11:00 Acetaminophen (Tylenol) 650 mg PRN Q6HRS PRN PO MILD PAIN / TEMP > 100.3'F Last administered on 04/28/20at 11:04; Start 04/28/20 at 10:30 Sodium Chloride 500 ml @ 500 mls/hr 1X ONCE IV Last administered on 04/28/20at 11:49; Start 04/28/20 at 11:30; Stop 04/28/20 at 12:29; Status DC Doxycycline Hyclate (Vibra-Tab) 100 mg BID PO ; Start 04/28/20 at 21:00 Active Scripts Active Reported Dyazide 37.5-25 Capsule (Triamterene/Hydrochlorothiazid) 1 Each Capsule 1 Cap PO DAILY Lisinopril 40 Mg Tablet 40 Mg PO DAILY Lisinopril 10 Mg Tablet 1 Tab PO DAILY Allergies Allergies: Coded Allergies: Iodinated Contrast Media (Verified Allergy, Intermediate, Itching, 04/25/20) malt extract (Verified Allergy, Intermediate, Itching, 04/25/20) ROS General: No: Chills, Night Sweats PSYCHOLOGICAL ROS: No: Anxiety, Behavioral Disorder Eyes: No Blurry vision, No Decreased vision HEENT: No: Heacaches ALLERGY AND IMMUNOLOGY: No: Nasal Congestion, Post Nasal Drip Hematological and Lymphatic: No: Brusing, Night Sweats ENDOCRINE: No: Malaise/lethargy, Mood Swings Respiratory: No: Cough, Hemoptysis Cardiovascular: No Chest Pain, No Palpitations Gastrointestinal: No Nausea, No Vomiting, No Abdominal Pain, No Diarrhea, No Melena, No Hematochezia Genitourinary: No Dysuria, No Hematuria, No Flank Pain Musculoskeletal: No Gait Disturbance Neurological: No Behavorial Changes, No Bowel/Bladder ControlChng Skin: No Dry Skin, No Eczema Physical Exam General: Alert, Oriented X3 HEENT: Atraumatic Lungs: Clear to auscultation Heart: Regular rate, Normal S1 Abdomen: Normal bowel sounds, Soft Extremities: No clubbing Skin: No rashes, No breakdown Neuro: Normal gait MUSCULOSKELETAL: No swelling, No muscular tenderness noted Vitals VITALS Vital Signs Date Time Temp Pulse Resp B/P (MAP) Pulse Ox O2 Delivery O2 Flow Rate FiO2 04/28/20 12:44 100.4 100.4 04/28/20 10:50 93 20 110/63 (79) 99 Room Air Labs Labs Laboratory Tests Test 04/26/20 16:30 04/26/20 17:25 04/26/20 20:45 04/27/20 04:18 Sodium Level 120 mmol/L (136-145) 124 mmol/L (136-145) 126 mmol/L (136-145) Potassium Level 4.6 mmol/L (3.5-5.1) 5.1 mmol/L (3.5-5.1) 5.1 mmol/L (3.5-5.1) Chloride Level 93 mmol/L (98-107) 96 mmol/L (98-107) 97 mmol/L (98-107) Carbon Dioxide Level 24 mmol/L (21-32) 22 mmol/L (21-32) 22 mmol/L (21-32) Anion Gap 3 (6-14) 6 (6-14) 7 (6-14) Blood Urea Nitrogen 28 mg/dL (7-20) 27 mg/dL (7-20) 24 mg/dL (7-20) Creatinine 1.2 mg/dL (0.6-1.0) 1.1 mg/dL (0.6-1.0) 1.1 mg/dL (0.6-1.0) Estimated GFR (Cockcroft-Gault) 45.7 50.5 50.5 Glucose Level 124 mg/dL (70-99) 114 mg/dL (70-99) 96 mg/dL (70-99) Calcium Level 9.7 mg/dL (8.5-10.1) 10.1 mg/dL (8.5-10.1) 10.3 mg/dL (8.5-10.1) Urine Sodium 45 mmol/L (Not Estab.) Urine Potassium 13.0 mmol/L (Not Estab.) Urine Chloride 44 mmol/L (Not Estab.) Urine Opiates Screen Neg (NEG) Urine Methadone Screen Neg (NEG) Urine Barbiturates Neg (NEG) Urine Phencyclidine Screen Neg (NEG) Urine Amphetamine/Methamphetamine Neg (NEG) Urine Benzodiazepines Screen Neg (NEG) Urine Cocaine Screen Neg (NEG) Urine Cannabinoids Screen Neg (NEG) Urine Ethyl Alcohol Neg (NEG) White Blood Count 3.9 x10^3/uL (4.0-11.0) Red Blood Count 3.13 x10^6/uL (3.50-5.70) Hemoglobin 10.2 g/dL (12.0-15.5) Hematocrit 30.1 % (36.0-47.0) Mean Corpuscular Volume 96 fL (79-100) Mean Corpuscular Hemoglobin 33 pg (25-35) Mean Corpuscular Hemoglobin Concent 34 g/dL (31-37) Red Cell Distribution Width 12.2 % (11.5-14.5) Platelet Count 324 x10^3/uL (140-400) Neutrophils (%) (Auto) 45 % (31-73) Lymphocytes (%) (Auto) 38 % (24-48) Monocytes (%) (Auto) 14 % (0-9) Eosinophils (%) (Auto) 1 % (0-3) Basophils (%) (Auto) 1 % (0-3) Neutrophils # (Auto) 1.8 x10^3/uL (1.8-7.7) Lymphocytes # (Auto) 1.5 x10^3/uL (1.0-4.8) Monocytes # (Auto) 0.6 x10^3/uL (0.0-1.1) Eosinophils # (Auto) 0.0 x10^3/uL (0.0-0.7) Basophils # (Auto) 0.0 x10^3/uL (0.0-0.2) Absolute Reticulocyte Count 0.021 x10^6/uL (0.020-0.120) Percent Reticulocyte Count 0.7 % (0.5-2.3) Immature Reticulocyte Fraction 0.18 (0.20-0.60) BUN/Creatinine Ratio 22 (6-20) Magnesium Level 2.0 mg/dL (1.8-2.4) Total Bilirubin 0.2 mg/dL (0.2-1.0) Aspartate Amino Transf (AST/SGOT) 14 U/L (15-37) Alanine Aminotransferase (ALT/SGPT) 23 U/L (14-59) Alkaline Phosphatase 107 U/L (46-116) Total Protein 7.0 g/dL (6.4-8.2) Albumin 3.8 g/dL (3.4-5.0) Albumin/Globulin Ratio 1.2 (1.0-1.7) Cortisol AM Sample 15.0 ug/dL (4.3-22.4) Test 04/27/20 11:25 04/27/20 14:20 04/27/20 15:55 04/27/20 22:02 Estimated GFR (Non- 48 (>59) Ionized Calcium 1.59 mmol/L (1.13-1.32) Iron Level 37 ug/dL (50-170) Total Iron Binding Capacity 364 ug/dL (250-450) Iron Saturation 10 % (15-34) EGFR 55 (>59) Vitamin B12 Level 795 pg/mL (247-911) PTH (Intact) Specimen Description Comment (.) Parathyroid Hormone (Intact) 74 pg/mL (15-65) Calcium (PTH Intact) 11.2 mg/dL (8.7-10.3) Creatinine (PTH Intact) 1.22 mg/dL (0.57-1.00) Phosphorus (PTH Intact) 2.8 mg/dL (3.0-4.3) Haptoglobin 169 mg/dL (37-355) Sodium Level 128 mmol/L (136-145) 129 mmol/L (136-145) Potassium Level 4.7 mmol/L (3.5-5.1) 4.4 mmol/L (3.5-5.1) Chloride Level 96 mmol/L (98-107) 97 mmol/L (98-107) Carbon Dioxide Level 24 mmol/L (21-32) 25 mmol/L (21-32) Anion Gap 8 (6-14) 7 (6-14) Blood Urea Nitrogen 27 mg/dL (7-20) 27 mg/dL (7-20) Creatinine 1.5 mg/dL (0.6-1.0) 1.5 mg/dL (0.6-1.0) Estimated GFR (Cockcroft-Gault) 35.3 35.3 Glucose Level 105 mg/dL (70-99) 132 mg/dL (70-99) Calcium Level 10.4 mg/dL (8.5-10.1) 9.9 mg/dL (8.5-10.1) Lactate Dehydrogenase 141 U/L (81-234) Urine Collection Type Unknown Urine Color Yellow Urine Clarity Clear Urine pH 5.5 (<5.0-8.0) Urine Specific [place] 1.010 (1.000-1.030) Urine Protein Negative mg/dL (NEG-TRACE) Urine Glucose (UA) Negative mg/dL (NEG) Urine Ketones (Stick) Negative mg/dL (NEG) Urine Blood Negative (NEG) Urine Nitrite Negative (NEG) Urine Bilirubin Negative (NEG) Urine Urobilinogen Dipstick 0.2 mg/dL (0.2 mg/dL) Urine Leukocyte Esterase Moderate (NEG) Urine RBC 1-2 /HPF (0-2) Urine WBC 20-40 /HPF (0-4) Urine Squamous Epithelial Cells Few /LPF Urine Transitional Epithelial Cells Few /LPF Urine Bacteria Few /HPF (0-FEW) Urine Hyaline Casts Moderate /HPF Urine Mucus Mod /LPF Test 04/28/20 07:35 Sodium Level 129 mmol/L (136-145) Potassium Level 4.8 mmol/L (3.5-5.1) Chloride Level 99 mmol/L (98-107) Carbon Dioxide Level 22 mmol/L (21-32) Anion Gap 8 (6-14) Blood Urea Nitrogen 20 mg/dL (7-20) Creatinine 1.3 mg/dL (0.6-1.0) Estimated GFR (Cockcroft-Gault) 41.6 BUN/Creatinine Ratio 15 (6-20) Glucose Level 101 mg/dL (70-99) Calcium Level 10.5 mg/dL (8.5-10.1) Total Bilirubin 0.3 mg/dL (0.2-1.0) Aspartate Amino Transf (AST/SGOT) 15 U/L (15-37) Alanine Aminotransferase (ALT/SGPT) 21 U/L (14-59) Alkaline Phosphatase 98 U/L (46-116) Total Protein 7.3 g/dL (6.4-8.2) Albumin 3.5 g/dL (3.4-5.0) Albumin/Globulin Ratio 0.9 (1.0-1.7) 25-Hydroxy Vitamin D Total 10.7 ng/mL (30-100) Laboratory Tests Test 04/27/20 14:20 04/27/20 15:55 04/27/20 22:02 04/28/20 07:35 Haptoglobin 169 mg/dL (37-355) Sodium Level 128 mmol/L (136-145) 129 mmol/L (136-145) 129 mmol/L (136-145) Potassium Level 4.7 mmol/L (3.5-5.1) 4.4 mmol/L (3.5-5.1) 4.8 mmol/L (3.5-5.1) Chloride Level 96 mmol/L (98-107) 97 mmol/L (98-107) 99 mmol/L (98-107) Carbon Dioxide Level 24 mmol/L (21-32) 25 mmol/L (21-32) 22 mmol/L (21-32) Anion Gap 8 (6-14) 7 (6-14) 8 (6-14) Blood Urea Nitrogen 27 mg/dL (7-20) 27 mg/dL (7-20) 20 mg/dL (7-20) Creatinine 1.5 mg/dL (0.6-1.0) 1.5 mg/dL (0.6-1.0) 1.3 mg/dL (0.6-1.0) Estimated GFR (Cockcroft-Gault) 35.3 35.3 41.6 Glucose Level 105 mg/dL (70-99) 132 mg/dL (70-99) 101 mg/dL (70-99) Calcium Level 10.4 mg/dL (8.5-10.1) 9.9 mg/dL (8.5-10.1) 10.5 mg/dL (8.5-10.1) Lactate Dehydrogenase 141 U/L (81-234) Urine Collection Type Unknown Urine Color Yellow Urine Clarity Clear Urine pH 5.5 (<5.0-8.0) Urine Specific [place] 1.010 (1.000-1.030) Urine Protein Negative mg/dL (NEG-TRACE) Urine Glucose (UA) Negative mg/dL (NEG) Urine Ketones (Stick) Negative mg/dL (NEG) Urine Blood Negative (NEG) Urine Nitrite Negative (NEG) Urine Bilirubin Negative (NEG) Urine Urobilinogen Dipstick 0.2 mg/dL (0.2 mg/dL) Urine Leukocyte Esterase Moderate (NEG) Urine RBC 1-2 /HPF (0-2) Urine WBC 20-40 /HPF (0-4) Urine Squamous Epithelial Cells Few /LPF Urine Transitional Epithelial Cells Few /LPF Urine Bacteria Few /HPF (0-FEW) Urine Hyaline Casts Moderate /HPF Urine Mucus Mod /LPF BUN/Creatinine Ratio 15 (6-20) Total Bilirubin 0.3 mg/dL (0.2-1.0) Aspartate Amino Transf (AST/SGOT) 15 U/L (15-37) Alanine Aminotransferase (ALT/SGPT) 21 U/L (14-59) Alkaline Phosphatase 98 U/L (46-116) Total Protein 7.3 g/dL (6.4-8.2) Albumin 3.5 g/dL (3.4-5.0) Albumin/Globulin Ratio 0.9 (1.0-1.7) 25-Hydroxy Vitamin D Total 10.7 ng/mL (30-100) Assessment/Plan Assessment/Plan Assessment: Normocytic anemia Hypotension Hypercalcemia Hyponatremia JOSUE Recommendations: -Suspect hypotension, hyponatremia and hypercalcemia are secondary to HCTZ therapy. Consider alternative agent for management of HTN -Will request records from PCP office to determine duration of anemia -Given JOSUE,hypercalcemia, I recommended iron panel, B12, SPEP, free K/L assay. -Consider further work-up with bone marrow bx and Hb electrophoresis based on the results of the above work-up. This may be completed as outpatient -Will arrange follow-up in my office Thank you for the consult Chepe Young MD Phone: [phone] FANY YOUNG MD Apr 28, 2020 14:09
--- NOTE | 2020-04-28 14:46 | CONS ---
DATE OF CONSULTATION: 04/28/2020 REFERRING PHYSICIAN: Dr. Reynoso. REASON FOR CONSULTATION: Febrile illness. HISTORY OF PRESENT ILLNESS: A 59-year-old female who presented to the ER for evaluation of hyponatremia. She was found to be hypotensive. She denies any fevers, chills, nausea, vomiting on presentation. Her sodium was 114 with carbon dioxide of 20, calcium of 10.4, magnesium of 1.7. LFTs were normal. White count was 4.4, hemoglobin of 10.8 and platelets of 375. Repeat WBC yesterday was 3.9, hemoglobin was 10.2. She also had JOSUE with creatinine around 1.4, had been 1.5 yesterday. She was evaluated by Nephrology Service. PTH is 74, calcium intact was 11.2. Phosphorus was 2.4. A.m. cortisol level is pending at this time. The patient had 20-40 wbc's with moderate leukocyte esterase. Immunology workup is pending. UDS was negative. She underwent a chest x-ray, which showed no acute radiographic abnormality. Abdominal and pelvic CT showed no acute findings. No mass or lymphadenopathy. The patient has been on Rocephin this morning. She had a fever of 100.4, so ID consult has been requested for further evaluation and treatment. Today, the patient has fevers and some subjective chills. She also has pain over the left hand where her IV site is. She denies any headache, sore throat, allergies, nausea, vomiting, diarrhea, abdominal pain, symptoms, rash, joint pain. PAST MEDICAL HISTORY: Hypertension. PAST SURGICAL HISTORY: None. FAMILY HISTORY: As per HPI. SOCIAL HISTORY: No smoking. ETOH social. No drugs. Lives with family. Works in computer support. Has one dog. . CURRENT MEDICATION: Rocephin. Other medications reviewed in medication list. ALLERGIES: IODINATED CONTRAST MEDIA, MALT EXTRACT. REVIEW OF SYSTEMS: Negative except for above in HPI. PHYSICAL EXAMINATION: VITAL SIGNS: Temperature 100.4, pulse 93, respiratory rate 20, blood pressure 110/63, oxygen saturation 99% on room air. GENERAL: Alert, oriented x 3 female, lying in bed comfortably, in no acute distress. HEENT: Normocephalic, atraumatic, anicteric. No thrush. NECK: Supple, no JVD, no lymphadenopathy. LUNGS: Clear bilaterally. No wheezing. HEART: S1, S2. No gallops or murmurs. ABDOMEN: Soft, nontender, nondistended, no rebound, no guarding. EXTREMITIES: No edema, no cyanosis. DERMATOLOGIC: Warm and dry. No generalized rash. NEUROLOGIC: Alert and oriented x 3, grossly nonfocal. PSYCHIATRIC: Cooperative. LINES: PIV left hand shows some swelling, mild tenderness. No venous cords noted. No underlying fluctuance noted. IMAGING: Abdominal and pelvic CT as above. Chest x-ray as above. IMPRESSION: 1. Febrile illness ,etiology unclear, could be superficial t hrombophlebitis from lt hand iv site 2. Pyuria, no symptoms of urinary tract infection. 3. Hypotension.Requiring IV bolus of fluids 4. Severe hyponatremia.Improving 5. Hypercalcemia. 6. Hypomagnesemia. 7. Anemia and leukopenia. RECOMMENDATIONS: 1. Continue empiric Rocephin. 2. Start doxycycline. 3. Discontinue left peripheral IV. RN aware. 4. Local care. 5. Monitor closely,Trend wbc /fever pattern 6. Follow up labs and cultures. 7. Continue supportive care. Discussed with nursing staff. Discussed with at bedside Thank you for allowing me to participate in this patient's care. If you have any questions, do not hesitate to contact me. SAMANTHA SHULTZ MD DR: RYLEE/antony JOB#: [id number] / [id number] RAMOS
--- NOTE | 2020-04-28 15:49 | PDOC ---
CARDIO Progress Notes Date and Time Date of Service 04/28/2020 Time of Evaluation 1040 Subjective Subjective: No Chest Pain, No shortness of breath, No Palpitations Vitals Vitals Vital Signs Date Time Temp Pulse Resp B/P (MAP) Pulse Ox O2 Delivery O2 Flow Rate FiO2 04/28/20 12:44 100.4 100.4 04/28/20 10:50 93 20 110/63 (79) 99 Room Air Weight Weight [ ] Input and Output Intake and Output Intake and Output 04/28/20 07:00 Intake Total 2400 ml Output Total 750 ml Balance 1650 ml Intake Oral 1900 ml IV Total 500 ml Output Urine Total 750 ml # Voids 2 Laboratory Labs Laboratory Tests Test 04/27/20 15:55 04/27/20 22:02 04/28/20 07:35 Urine Collection Type Unknown Urine Color Yellow Urine Clarity Clear Urine pH 5.5 (<5.0-8.0) Urine Specific [place] 1.010 (1.000-1.030) Urine Protein Negative mg/dL (NEG-TRACE) Urine Glucose (UA) Negative mg/dL (NEG) Urine Ketones (Stick) Negative mg/dL (NEG) Urine Blood Negative (NEG) Urine Nitrite Negative (NEG) Urine Bilirubin Negative (NEG) Urine Urobilinogen Dipstick 0.2 mg/dL (0.2 mg/dL) Urine Leukocyte Esterase Moderate (NEG) Urine RBC 1-2 /HPF (0-2) Urine WBC 20-40 /HPF (0-4) Urine Squamous Epithelial Cells Few /LPF Urine Transitional Epithelial Cells Few /LPF Urine Bacteria Few /HPF (0-FEW) Urine Hyaline Casts Moderate /HPF Urine Mucus Mod /LPF Sodium Level 129 mmol/L (136-145) 129 mmol/L (136-145) Potassium Level 4.4 mmol/L (3.5-5.1) 4.8 mmol/L (3.5-5.1) Chloride Level 97 mmol/L (98-107) 99 mmol/L (98-107) Carbon Dioxide Level 25 mmol/L (21-32) 22 mmol/L (21-32) Anion Gap 7 (6-14) 8 (6-14) Blood Urea Nitrogen 27 mg/dL (7-20) 20 mg/dL (7-20) Creatinine 1.5 mg/dL (0.6-1.0) 1.3 mg/dL (0.6-1.0) Estimated GFR (Cockcroft-Gault) 35.3 41.6 Glucose Level 132 mg/dL (70-99) 101 mg/dL (70-99) Calcium Level 9.9 mg/dL (8.5-10.1) 10.5 mg/dL (8.5-10.1) BUN/Creatinine Ratio 15 (6-20) Total Bilirubin 0.3 mg/dL (0.2-1.0) Aspartate Amino Transf (AST/SGOT) 15 U/L (15-37) Alanine Aminotransferase (ALT/SGPT) 21 U/L (14-59) Alkaline Phosphatase 98 U/L (46-116) Total Protein 7.3 g/dL (6.4-8.2) Albumin 3.5 g/dL (3.4-5.0) Albumin/Globulin Ratio 0.9 (1.0-1.7) 25-Hydroxy Vitamin D Total 10.7 ng/mL (30-100) Physical Exam HEENT: Neck Supple W Full Motion Chest: Symmetric LUNGS: Clear to Auscultation Heart: RRR (SR no ectopies) Abdomen: Soft N/T Extremities: No Calf Tenderness Neurology: alert, oriented, follow commands Assessment Assessment 1. Hyponatremia/hypercalcemia/hypomagnesemia: ACEi and thiazides contributing; improving with IVF. Cortisol normal, TSH normal. Urine lytes and osm pending 2. JOSUE: improved 3. Hx of HTN: was low now normotensive. EF and WM nml 4. Fever: ID 5. Vit D deficiency with likely secondary hyperparathyroidism: per PCP Recommendations 1. Lytes are now improved. Na remains low, nephrology following. Moving forward. Norvasc would be the alternative when BP starts trending up. Meantime hold any BP meds. Maintain Hydration 2. No further cardiac workup. will follow peripherally. Justicifation of Admission Dx: Justifications for Admission: Justification of Admission Dx: Yes RADHA THOMAS APRN Apr 28, 2020 15:49
[2020-04-28] MEDS ORDERED: ALBUMIN HUMAN 5% 500 ML IV ONE (20:00)
--- NOTE | 2020-04-28 20:18 | NUR ---
pt bp rt arm 71/35, lt 63/33 pt asymptomatic, dr couch notified new orders received will cont to monitor pt status and safety. pmrn
[2020-04-28] MEDS ORDERED: DOXYCYCLINE HYCLATE 100 MG TABLET PO SCH (21:00)
[2020-04-28] MEDS: CHOLECALCIFEROL (VITAMIN D3) 5,000 UNIT CAPSULE PO SCH (21:01)
[2020-04-28] MEDS: LACTOBACILLUS RHAMNOSUS GG 1 CAPSULE. PO SCH (21:01)
[2020-04-29] VITALS (9 sets, daily range): BP systolic 72–131; BP diastolic 35–72
[2020-04-29] MEDS: ACETAMINOPHEN 325 MG TABLET. PO PRN ×3 (00:20→21:38)
--- NOTE | 2020-04-29 03:28 | NUR ---
Pt bp 72/35, HR 95, t- 100.6, pt is asymptomatic, dr valdez notified on given to give albumin 25 grams 5% daily prn for SBP < 90 and DBP < 65 will cont to monitor pt status and safety. pmrn
[2020-04-29] MEDS ORDERED: ALBUMIN HUMAN 5% 500 ML IV ONE (04:00)
--- NOTE | 2020-04-29 05:46 | NUR ---
PT BP CONTINUE TO BE LOW, PT ASYMPTOMATIC, DR JESUS PAZ, AWAITING RETURN CALL, WILL CONT TO MONITOR PT STATUS PMRN
--- NOTE | 2020-04-29 05:57 | NUR ---
DR LEE RETURNED CALL, NOTIFIED BP STILL 82/37, HR 87 ORDER GIVEN TO INFUSE A LITER OF NS X1 WILL CONT TO MONITOR PT STATUS AND SAFETY. PMRN
[2020-04-29] MEDS ORDERED: IV NORMAL SALINE 1000ML BAG 1,000 ML IV ONE (06:00)
--- NOTE | 2020-04-29 08:09 | PDOC ---
Infectious Disease Note Subjective: Subjective Patient states feels a little better today No further chills T-max 102.5 last p.m. Left hand swelling, redness and pain are improving since PIV is out Denies fever, nausea, vomiting, shortness of breath, diarrhea, abdominal pain, gu symptoms ,rash Otherwise as above Vital Signs: Vital Signs Vital Signs Date Time Temp Pulse Resp B/P (MAP) Pulse Ox O2 Delivery O2 Flow Rate FiO2 04/29/20 08:02 98.6 87 16 92/47 (62) 99 Room Air 98.6 Physical Exam: PHYSICAL EXAM GENERAL: Alert, oriented x 3 female, lying in bed comfortably, in no acute distress. HEENT: Normocephalic, atraumatic, anicteric. No thrush. NECK: Supple, no JVD, no lymphadenopathy. LUNGS: Clear bilaterally. No wheezing. HEART: S1, S2. No gallops or murmurs. ABDOMEN: Soft, nontender, nondistended, no rebound, no guarding. EXTREMITIES: No edema, no cyanosis. DERMATOLOGIC: Warm and dry. No generalized rash. NEUROLOGIC: Alert and oriented x 3, grossly nonfocal. PSYCHIATRIC: Cooperative. LINES: PIV left hand shows some swelling, mild tenderness. Improved no venous cords noted. No underlying fluctuance noted. Medications: Inpatient Meds: Current Medications Medications (Trade) Dose Ordered Sig/Quynh Start Time Stop Time Status Last Admin Dose Admin Acetaminophen (Tylenol) 650 mg PRN Q6HRS PRN 04/28/20 10:30 04/29/20 00:20 650 MG Albumin Human 500 ml @ 125 mls/hr 1X ONCE 04/29/20 04:00 04/29/20 07:59 DC 04/29/20 03:45 125 MLS/HR Cefepime HCl (Maxipime) 2 gm Q8HRS 04/29/20 14:00 UNV Ceftriaxone Sodium (Rocephin) 1 gm Q24H 04/28/20 11:00 04/29/20 08:05 DC 04/28/20 11:04 1 GM Daptomycin 410 mg/ Sodium Chloride 50 ml @ 100 mls/hr Q24H 04/29/20 08:15 UNV Doxycycline Hyclate (Vibra-Tab) 100 mg BID 04/28/20 21:00 04/29/20 08:06 DC 04/28/20 21:01 100 MG Lactobacillus Rhamnosus (Culturelle) 1 cap BID 04/28/20 21:00 04/28/20 21:01 1 CAP Magnesium Oxide (Magnesium Oxide) 400 mg DAILY 04/26/20 17:00 04/28/20 09:35 400 MG Magnesium Sulfate 50 ml @ 25 mls/hr 1X ONCE 04/26/20 15:15 04/26/20 16:46 DC Sodium Chloride 1,000 ml @ 200 mls/hr 1X ONCE 04/29/20 06:00 04/29/20 10:59 04/29/20 06:16 200 MLS/HR Vitamin D (Vitamin D3) 5,000 unit DAILY 04/28/20 20:00 04/28/20 21:01 5,000 UNIT Labs: Lab Laboratory Tests Test 04/28/20 20:42 Lactic Acid Level 1.1 mmol/L (0.4-2.0) Objective: Assessment: 1. Febrile illness ,etiology unclear, could be superficial t hrombophlebitis from lt hand iv site Blood cultures pending 2. Asymptomatic bacteriuria, urine culture pending at this time 3. Hypotension.Requiring IV bolus of fluids 4. Severe hyponatremia.Improving 5. Hypercalcemia. 6. Hypomagnesemia. 7. Anemia and leukopenia. Plan: Plan of Care DC current antibiotics to cefepime and daptomycin Local care for her left hand Follow-up blood cultures and urine culture Trend WBC and fever pattern Continue supportive care. Discussed with nursing staff. Discussed with at bedside SAMANTHA SHULTZ MD Apr 29, 2020 08:09
[2020-04-29] MEDS: CHOLECALCIFEROL (VITAMIN D3) 5,000 UNIT CAPSULE PO SCH (08:15)
[2020-04-29] MEDS: MAGNESIUM OXIDE 400 MG TABLET PO SCH (08:15)
[2020-04-29] MEDS: LACTOBACILLUS RHAMNOSUS GG 1 CAPSULE. PO SCH ×2 (08:15→21:38)
[2020-04-29 08:44] LABS: BASO % 1 % (0-3); EOS % 0 % (0-3); HEMATOCRIT 21.5 % (36.0-47.0); HEMOGLOBIN 7.2 g/dL (12.0-15.5); LYMPH # 0.4 x10^3/uL (1.0-4.8); LYMPH % 10 % (24-48); MEAN CORPUSCULAR HEMOGLOBIN 32 pg (25-35); MEAN CORPUSCULAR HGB CONC 33 g/dL (31-37); MEAN CORPUSCULAR VOLUME 97 fL (79-100); MONO # 0.3 x10^3/uL (0.0-1.1); MONO % 7 % (0-9); NEUT # 3.3 x10^3/uL (1.8-7.7); NEUT % 82 % (31-73); PLATELET COUNT 201 x10^3/uL (140-400); RED BLOOD COUNT 2.22 x10^6/uL (3.50-5.40); RED CELL DISTRIBUTION WIDTH 12.3 % (11.5-14.5); WHITE BLOOD COUNT 4.1 x10^3/uL (4.0-11.0)
[2020-04-29] MEDS: CEFEPIME HCL IV Push 2 GM VIAL. IVP SCH ×2 (08:50→21:39)
[2020-04-29 09:00] LABS: ALBUMIN 3.2 g/dL (3.4-5.0); CALCIUM 8.3 mg/dL (8.5-10.1); CREATININE 1.3 mg/dL (0.6-1.0); GFR 41.6; PHOSPHORUS 2.2 mg/dL (2.6-4.7); POTASSIUM 3.5 mmol/L (3.5-5.1)
--- NOTE | 2020-04-29 09:09 | PDOC ---
DATE OF SERVICE DATE: 04/29/20 TIME: 09:09 SUBJECTIVE ROS States feeling better. No temp spike since this am, No chills OBJECTIVE Vital Signs Vital Signs Date Time Temp Pulse Resp B/P (MAP) Pulse Ox O2 Delivery O2 Flow Rate FiO2 04/29/20 08:02 98.6 87 16 92/47 (62) 99 Room Air 98.6 I & 0 Intake and Output 04/29/20 07:00 Intake Total 1995 ml Output Total 1500 ml Balance 495 ml Intake Oral 995 ml IV Total 1000 ml Output Urine Total 1500 ml PHYSICAL EXAM Physical Exam General: Alert, Oriented X3, Cooperative, No acute distress HEENT: PERRLA Lungs: Clear to auscultation, Normal air movement Heart: Regular rate Abdomen: Normal bowel sounds, Soft, No tenderness Extremities: No cyanosis, No edema Skin: No rash Neuro: Normal speech, Sensation intact - No lilly DIAGNOSIS/ASSESSMENT Assessment & Plan Hyponatremia- severe -114 at presentation Was on HCTZ , held, Improving with IVF to 133 this am Restrict PO fluids Ur and serum Osm pending ,Strict UOP , Daily BMP Fever/Chills this am UA has WBC's, defer to primary Low Mg- replaced HyperCalcemia- mildly elevated, recommend alicea for Paraproteinemia Anemia and Low WBC- recommend Hem/onc Hypotension- since presentation, fluid bolus given Last evening BP dropped in 70's, requiring IV NS boluses At home on antohypertesnives- CHARLES-I and HCTZ Dw Pt and RN COMMENT/RELEVANT DATA Meds Current Medications Medications (Trade) Dose Ordered Sig/Quynh Start Time Stop Time Status Last Admin Dose Admin Acetaminophen (Tylenol) 650 mg PRN Q6HRS PRN 04/28/20 10:30 04/29/20 00:20 650 MG Albumin Human 500 ml @ 125 mls/hr 1X ONCE 04/29/20 04:00 04/29/20 07:59 DC 04/29/20 03:45 125 MLS/HR Cefepime HCl (Maxipime) 2 gm Q12HR 04/29/20 09:00 Ceftriaxone Sodium (Rocephin) 1 gm Q24H 04/28/20 11:00 04/29/20 08:05 DC 04/28/20 11:04 1 GM Daptomycin 410 mg/ Sodium Chloride 50 ml @ 100 mls/hr Q24H 04/29/20 09:00 Doxycycline Hyclate (Vibra-Tab) 100 mg BID 04/28/20 21:00 04/29/20 08:06 DC 04/28/20 21:01 100 MG Lactobacillus Rhamnosus (Culturelle) 1 cap BID 04/28/20 21:00 04/28/20 21:01 1 CAP Magnesium Oxide (Magnesium Oxide) 400 mg DAILY 04/26/20 17:00 04/28/20 09:35 400 MG Magnesium Sulfate 50 ml @ 25 mls/hr 1X ONCE 04/26/20 15:15 04/26/20 16:46 DC Sodium Chloride 1,000 ml @ 200 mls/hr 1X ONCE 04/29/20 06:00 04/29/20 10:59 04/29/20 06:16 200 MLS/HR Vitamin D (Vitamin D3) 5,000 unit DAILY 04/28/20 20:00 04/28/20 21:01 5,000 UNIT Lab Laboratory Tests Test 04/28/20 20:42 04/29/20 08:31 Lactic Acid Level 1.1 mmol/L (0.4-2.0) White Blood Count 4.1 x10^3/uL (4.0-11.0) Red Blood Count 2.22 x10^6/uL (3.50-5.40) Hemoglobin 7.2 g/dL (12.0-15.5) Hematocrit 21.5 % (36.0-47.0) Mean Corpuscular Volume 97 fL (79-100) Mean Corpuscular Hemoglobin 32 pg (25-35) Mean Corpuscular Hemoglobin Concent 33 g/dL (31-37) Red Cell Distribution Width 12.3 % (11.5-14.5) Platelet Count 201 x10^3/uL (140-400) Neutrophils (%) (Auto) 82 % (31-73) Lymphocytes (%) (Auto) 10 % (24-48) Monocytes (%) (Auto) 7 % (0-9) Eosinophils (%) (Auto) 0 % (0-3) Basophils (%) (Auto) 1 % (0-3) Neutrophils # (Auto) 3.3 x10^3/uL (1.8-7.7) Lymphocytes # (Auto) 0.4 x10^3/uL (1.0-4.8) Monocytes # (Auto) 0.3 x10^3/uL (0.0-1.1) Eosinophils # (Auto) 0.0 x10^3/uL (0.0-0.7) Basophils # (Auto) 0.0 x10^3/uL (0.0-0.2) Sodium Level 133 mmol/L (136-145) Potassium Level 3.5 mmol/L (3.5-5.1) Chloride Level 103 mmol/L (98-107) Carbon Dioxide Level 19 mmol/L (21-32) Anion Gap 11 (6-14) Blood Urea Nitrogen 21 mg/dL (7-20) Creatinine 1.3 mg/dL (0.6-1.0) Estimated GFR (Cockcroft-Gault) 41.6 Glucose Level 96 mg/dL (70-99) Calcium Level 8.3 mg/dL (8.5-10.1) Phosphorus Level 2.2 mg/dL (2.6-4.7) Albumin 3.2 g/dL (3.4-5.0) Results All relevant outside records, renal labs, imaging studies, telemetry/EKG's were reviewed. Justicifation of Admission Dx: Justifications for Admission: Justification of Admission Dx: Yes JEFFERSON OLSEN MD Apr 29, 2020 09:09
[2020-04-29] MEDS: DAPTOmycin (GENERIC) IVPB 410 MG in IV NORMAL SALINE 50ML 50 ML IV SCH (09:19)
--- NOTE | 2020-04-29 10:58 | PDOC ---
[employer] PROGRESS NOTE Date of Service DOS: DATE: 04/29/20 TIME: 10:37 Chief Complaint Chief Complaint Hyponatremia History of Present Illness History of Present Illness 04/29/2020 Patient seen and examined Patient was in bed in NAD Patient was started on IV daptomycin and cefepime for probable sepsis with hypotension (86/42) Patient was also given albumin to stabilize BP. Appreciate ID and Heme/Onc input Discussed with daughter Will need to possibly switch to lisinopril without HCTZ when she goes home Sodium levels at 133 currently trending upwards 04/28/2020 Patient seen and examined Patient was walking around, NAD Discussed with RN Discussed with case management Reviewed chart Spiked a fever - ordered rocephin 1 g IV q24h Await ID Consult Sodium levels are still low at 129 Identification/Chief Complaint Chief Complaint cc ========= 59 yo AA F past medical history of hypertension, presents to the ED sent in by her primary care physician Dr. Acosta with concern for hyponatremia, sodium 115 that was drawn yesterday urine and serum osmolality pending as well as serum cortisol Past Medical History Cardiovascular: HTN Family History Family History: Hypertension Social History Smoke: No ALCOHOL: none Drugs: None Vitals/I&O Vitals/I&O: Vital Signs Date Time Temp Pulse Resp B/P (MAP) Pulse Ox O2 Delivery O2 Flow Rate FiO2 04/29/20 10:33 98.9 79 18 87/47 (60) 96 Room Air 98.9 I & O 04/28/20 04/28/20 04/29/20 15:00 23:00 07:00 Intake Total 920 ml 200 ml 875 ml Output Total 900 ml 600 ml Balance 20 ml 200 ml 275 ml Physical Exam General: Alert, Oriented X3, No acute distress Heart: Regular rate, Normal S1 Lungs: Clear Abdomen: Normal bowel sounds, Soft Extremities: No clubbing Skin: No rashes, No breakdown Labs Labs: Laboratory Tests Test 04/28/20 20:42 04/29/20 08:31 Lactic Acid Level 1.1 mmol/L (0.4-2.0) White Blood Count 4.1 x10^3/uL (4.0-11.0) Red Blood Count 2.22 x10^6/uL (3.50-5.40) Hemoglobin 7.2 g/dL (12.0-15.5) Hematocrit 21.5 % (36.0-47.0) Mean Corpuscular Volume 97 fL (79-100) Mean Corpuscular Hemoglobin 32 pg (25-35) Mean Corpuscular Hemoglobin Concent 33 g/dL (31-37) Red Cell Distribution Width 12.3 % (11.5-14.5) Platelet Count 201 x10^3/uL (140-400) Neutrophils (%) (Auto) 82 % (31-73) Lymphocytes (%) (Auto) 10 % (24-48) Monocytes (%) (Auto) 7 % (0-9) Eosinophils (%) (Auto) 0 % (0-3) Basophils (%) (Auto) 1 % (0-3) Neutrophils # (Auto) 3.3 x10^3/uL (1.8-7.7) Lymphocytes # (Auto) 0.4 x10^3/uL (1.0-4.8) Monocytes # (Auto) 0.3 x10^3/uL (0.0-1.1) Eosinophils # (Auto) 0.0 x10^3/uL (0.0-0.7) Basophils # (Auto) 0.0 x10^3/uL (0.0-0.2) Sodium Level 133 mmol/L (136-145) Potassium Level 3.5 mmol/L (3.5-5.1) Chloride Level 103 mmol/L (98-107) Carbon Dioxide Level 19 mmol/L (21-32) Anion Gap 11 (6-14) Blood Urea Nitrogen 21 mg/dL (7-20) Creatinine 1.3 mg/dL (0.6-1.0) Estimated GFR (Cockcroft-Gault) 41.6 Glucose Level 96 mg/dL (70-99) Calcium Level 8.3 mg/dL (8.5-10.1) Phosphorus Level 2.2 mg/dL (2.6-4.7) Albumin 3.2 g/dL (3.4-5.0) Review of Systems Review of Systems: Denies weakness Denies pain Assessment and Plan Assessmemt and Plan Problems Medical Problems: (1) JOSUE (acute kidney injury) Status: Acute (2) Hypomagnesemia Status: Acute (3) Hyponatremia Status: Acute 1. 59 yo AA F past medical history of hypertension, presents with concern for hyponatremia, sodium 114 on admission 2. severe hyponatremia 3. mild hypercalcemia 4. normocytic anemia 5. hypomagnesemia 6. possible adrenal insufficiency 7. hypercalcemia ? OCCULT MALIGNANCY 8. Probable sepsis with hypotension Plan Slow correction of Na, currently 133 trending upwards Trend labs Continue IV daptomycin and cefepime Continue IVF 200cc/hr Cardiac monitoring DVT prophylaxis Home meds AM, PM CORTISOL avoid overcorrection, too fast fe panel retic count ionized ca parathyroid hormone level serum and urine immunofixation IGG, IGA, IGM results pending Appreciate ID & Heme/Onc input Switch to lisinopril without HCTZ on discharge Full code Comment Review of Relevant I have reviewed the following items mickey (where applicable) has been applied. Medications: Current Medications Medications (Trade) Dose Ordered Sig/Quynh Route PRN Reason Start Time Stop Time Status Last Admin Dose Admin Ceftriaxone Sodium (Rocephin) 1 gm Q24H IVP 04/28/20 11:00 04/29/20 08:05 DC 04/28/20 11:04 Sodium Chloride 500 ml @ 500 mls/hr 1X ONCE IV 04/28/20 11:30 04/28/20 12:29 DC 04/28/20 11:49 Doxycycline Hyclate (Vibra-Tab) 100 mg BID PO 04/28/20 21:00 04/29/20 08:06 DC 04/28/20 21:01 Lactobacillus Rhamnosus (Culturelle) 1 cap BID PO 04/28/20 21:00 04/29/20 08:15 Albumin Human 500 ml @ 125 mls/hr 1X ONCE IV 04/28/20 20:00 04/28/20 23:59 DC 04/28/20 20:59 Vitamin D (Vitamin D3) 5,000 unit DAILY PO 04/28/20 20:00 04/29/20 08:15 Albumin Human 500 ml @ 125 mls/hr 1X ONCE IV 04/29/20 04:00 04/29/20 07:59 DC 04/29/20 03:45 Sodium Chloride 1,000 ml @ 200 mls/hr 1X ONCE IV 04/29/20 06:00 04/29/20 10:59 04/29/20 06:16 Cefepime HCl (Maxipime) 2 gm Q12HR IVP 04/29/20 09:00 04/29/20 08:50 Daptomycin 410 mg/ Sodium Chloride 50 ml @ 100 mls/hr Q24H IV 04/29/20 09:00 04/29/20 09:19 Justifications for Admission Other Justification SARMAD ADAMSON III DO Apr 29, 2020 10:58
--- NOTE | 2020-04-29 11:56 | PDOC ---
PROGRESS NOTES Date of Service DATE: 04/29/20 TIME: 11:49 Subjective Subjective Ms. Kowalski was seen in a follow-up visit today. She reports fever and weakness yesterday. She had a bowel movement yesterday which was normal. She has not had a bowel movement since then. I discussed the results of her CBC today which showed a sudden drop in hemoglobin. She denies hematemesis or melena or hematochezia or hematuria. Objective Objective Vital Signs Date Time Temp Pulse Resp B/P (MAP) Pulse Ox O2 Delivery O2 Flow Rate FiO2 04/29/20 10:33 98.9 79 18 87/47 (60) 96 Room Air 98.9 04/25/20 20:50 Intake and Output 04/29/20 07:00 Intake Total 1995 ml Output Total 1500 ml Balance 495 ml Intake Oral 995 ml IV Total 1000 ml Output Urine Total 1500 ml Physical Exam Abdomen: Normal bowel sounds, Soft Heart: Regular rate, Normal S1 Extremities: No clubbing, No cyanosis General: Alert, Oriented X3 HEENT: Atraumatic, PERRLA Lungs: Clear to auscultation MUSCULOSKELETAL: No joint tenderness, No deformity, No swelling Neck: Supple, No JVD Neuro: Normal gait, Normal speech Psych/Mental Status: Mental status NL Skin: No rashes Assessment Assessment Normocytic anemia Hypotension Hypercalcemia Hyponatremia JOSUE Plan Plan of Care -Given sudden drop in hemoglobin, I requested repeat CBC today. -I asked the patient to observe his stool and report if she notices black stool or bloody stool. Consider GI evaluation while inpatient if repeat CBC confirms three-point drop in hemoglobin -Reviewed results of iron studies, B12 which are suggestive of iron deficiency -I suspect that her presentation with hypercalcemia, hyponatremia and hypotension are secondary to HCTZ therapy. Consider alternative agent for management of HTN -Will request records from PCP office to determine duration of anemia -Follow-up on SPEP, free K/L assay. Pending at this time -Consider further work-up with bone marrow bx and Hb electrophoresis based on the results of the above work-up. This may be completed as outpatient -Will arrange follow-up in my office Chepe Young MD Medical Oncology/Hematology Ph: [phone] Comment Review of Relevant I have reviewed the following items mickey (where applicable) has been applied. Labs Laboratory Tests Test 04/27/20 14:20 04/27/20 15:55 04/27/20 22:02 04/28/20 07:35 Haptoglobin 169 mg/dL (37-355) Sodium Level 128 mmol/L (136-145) 129 mmol/L (136-145) 129 mmol/L (136-145) Potassium Level 4.7 mmol/L (3.5-5.1) 4.4 mmol/L (3.5-5.1) 4.8 mmol/L (3.5-5.1) Chloride Level 96 mmol/L (98-107) 97 mmol/L (98-107) 99 mmol/L (98-107) Carbon Dioxide Level 24 mmol/L (21-32) 25 mmol/L (21-32) 22 mmol/L (21-32) Anion Gap 8 (6-14) 7 (6-14) 8 (6-14) Blood Urea Nitrogen 27 mg/dL (7-20) 27 mg/dL (7-20) 20 mg/dL (7-20) Creatinine 1.5 mg/dL (0.6-1.0) 1.5 mg/dL (0.6-1.0) 1.3 mg/dL (0.6-1.0) Estimated GFR (Cockcroft-Gault) 35.3 35.3 41.6 Glucose Level 105 mg/dL (70-99) 132 mg/dL (70-99) 101 mg/dL (70-99) Calcium Level 10.4 mg/dL (8.5-10.1) 9.9 mg/dL (8.5-10.1) 10.5 mg/dL (8.5-10.1) Lactate Dehydrogenase 141 U/L (81-234) Urine Collection Type Unknown Urine Color Yellow Urine Clarity Clear Urine pH 5.5 (<5.0-8.0) Urine Specific [place] 1.010 (1.000-1.030) Urine Protein Negative mg/dL (NEG-TRACE) Urine Glucose (UA) Negative mg/dL (NEG) Urine Ketones (Stick) Negative mg/dL (NEG) Urine Blood Negative (NEG) Urine Nitrite Negative (NEG) Urine Bilirubin Negative (NEG) Urine Urobilinogen Dipstick 0.2 mg/dL (0.2 mg/dL) Urine Leukocyte Esterase Moderate (NEG) Urine RBC 1-2 /HPF (0-2) Urine WBC 20-40 /HPF (0-4) Urine Squamous Epithelial Cells Few /LPF Urine Transitional Epithelial Cells Few /LPF Urine Bacteria Few /HPF (0-FEW) Urine Hyaline Casts Moderate /HPF Urine Mucus Mod /LPF BUN/Creatinine Ratio 15 (6-20) Total Bilirubin 0.3 mg/dL (0.2-1.0) Aspartate Amino Transf (AST/SGOT) 15 U/L (15-37) Alanine Aminotransferase (ALT/SGPT) 21 U/L (14-59) Alkaline Phosphatase 98 U/L (46-116) Total Protein 7.3 g/dL (6.4-8.2) Albumin 3.5 g/dL (3.4-5.0) Albumin/Globulin Ratio 0.9 (1.0-1.7) 25-Hydroxy Vitamin D Total 10.7 ng/mL (30-100) Test 04/28/20 20:42 04/29/20 08:31 Lactic Acid Level 1.1 mmol/L (0.4-2.0) White Blood Count 4.1 x10^3/uL (4.0-11.0) Red Blood Count 2.22 x10^6/uL (3.50-5.40) Hemoglobin 7.2 g/dL (12.0-15.5) Hematocrit 21.5 % (36.0-47.0) Mean Corpuscular Volume 97 fL (79-100) Mean Corpuscular Hemoglobin 32 pg (25-35) Mean Corpuscular Hemoglobin Concent 33 g/dL (31-37) Red Cell Distribution Width 12.3 % (11.5-14.5) Platelet Count 201 x10^3/uL (140-400) Neutrophils (%) (Auto) 82 % (31-73) Lymphocytes (%) (Auto) 10 % (24-48) Monocytes (%) (Auto) 7 % (0-9) Eosinophils (%) (Auto) 0 % (0-3) Basophils (%) (Auto) 1 % (0-3) Neutrophils # (Auto) 3.3 x10^3/uL (1.8-7.7) Lymphocytes # (Auto) 0.4 x10^3/uL (1.0-4.8) Monocytes # (Auto) 0.3 x10^3/uL (0.0-1.1) Eosinophils # (Auto) 0.0 x10^3/uL (0.0-0.7) Basophils # (Auto) 0.0 x10^3/uL (0.0-0.2) Sodium Level 133 mmol/L (136-145) Potassium Level 3.5 mmol/L (3.5-5.1) Chloride Level 103 mmol/L (98-107) Carbon Dioxide Level 19 mmol/L (21-32) Anion Gap 11 (6-14) Blood Urea Nitrogen 21 mg/dL (7-20) Creatinine 1.3 mg/dL (0.6-1.0) Estimated GFR (Cockcroft-Gault) 41.6 Glucose Level 96 mg/dL (70-99) Calcium Level 8.3 mg/dL (8.5-10.1) Phosphorus Level 2.2 mg/dL (2.6-4.7) Albumin 3.2 g/dL (3.4-5.0) Laboratory Tests Test 04/28/20 20:42 04/29/20 08:31 Lactic Acid Level 1.1 mmol/L (0.4-2.0) White Blood Count 4.1 x10^3/uL (4.0-11.0) Red Blood Count 2.22 x10^6/uL (3.50-5.40) Hemoglobin 7.2 g/dL (12.0-15.5) Hematocrit 21.5 % (36.0-47.0) Mean Corpuscular Volume 97 fL (79-100) Mean Corpuscular Hemoglobin 32 pg (25-35) Mean Corpuscular Hemoglobin Concent 33 g/dL (31-37) Red Cell Distribution Width 12.3 % (11.5-14.5) Platelet Count 201 x10^3/uL (140-400) Neutrophils (%) (Auto) 82 % (31-73) Lymphocytes (%) (Auto) 10 % (24-48) Monocytes (%) (Auto) 7 % (0-9) Eosinophils (%) (Auto) 0 % (0-3) Basophils (%) (Auto) 1 % (0-3) Neutrophils # (Auto) 3.3 x10^3/uL (1.8-7.7) Lymphocytes # (Auto) 0.4 x10^3/uL (1.0-4.8) Monocytes # (Auto) 0.3 x10^3/uL (0.0-1.1) Eosinophils # (Auto) 0.0 x10^3/uL (0.0-0.7) Basophils # (Auto) 0.0 x10^3/uL (0.0-0.2) Sodium Level 133 mmol/L (136-145) Potassium Level 3.5 mmol/L (3.5-5.1) Chloride Level 103 mmol/L (98-107) Carbon Dioxide Level 19 mmol/L (21-32) Anion Gap 11 (6-14) Blood Urea Nitrogen 21 mg/dL (7-20) Creatinine 1.3 mg/dL (0.6-1.0) Estimated GFR (Cockcroft-Gault) 41.6 Glucose Level 96 mg/dL (70-99) Calcium Level 8.3 mg/dL (8.5-10.1) Phosphorus Level 2.2 mg/dL (2.6-4.7) Albumin 3.2 g/dL (3.4-5.0) Microbiology 04/27/20 Urine Culture - Final, Complete Medications Current Medications Sodium Chloride 500 ml @ 500 mls/hr 1X ONCE IV Last administered on 04/25/20at 11:33; Start 04/25/20 at 11:00; Stop 04/25/20 at 11:59; Status DC Sodium Chloride 1,000 ml @ 75 mls/hr [id number] IV Last administered on 04/25/20at 18:25; Start 04/25/20 at 18:15; Stop 04/26/20 at 12:02; Status DC Sodium Chloride 1,000 ml @ 75 mls/hr [id number] IV ; Start 04/26/20 at 15:00; Stop 04/26/20 at 16:46; Status DC Magnesium Sulfate 50 ml @ 25 mls/hr 1X ONCE IV ; Start 04/26/20 at 15:15; Stop 04/26/20 at 16:46; Status DC Magnesium Oxide (Magnesium Oxide) 400 mg DAILY PO Last administered on 04/29/20at 08:15; Start 04/26/20 at 17:00 Sodium Chloride 500 ml @ 500 mls/hr 1X ONCE IV Last administered on 04/27/20at 13:15; Start 04/27/20 at 13:15; Stop 04/27/20 at 14:14; Status DC Ceftriaxone Sodium (Rocephin) 1 gm Q24H IVP Last administered on 04/28/20at 11:04; Start 04/28/20 at 11:00; Stop 04/29/20 at 08:05; Status DC Acetaminophen (Tylenol) 650 mg PRN Q6HRS PRN PO MILD PAIN / TEMP > 100.3'F Last administered on 04/29/20at 08:15; Start 04/28/20 at 10:30 Sodium Chloride 500 ml @ 500 mls/hr 1X ONCE IV Last administered on 04/28/20at 11:49; Start 04/28/20 at 11:30; Stop 04/28/20 at 12:29; Status DC Doxycycline Hyclate (Vibra-Tab) 100 mg BID PO Last administered on 04/28/20at 21:01; Start 04/28/20 at 21:00; Stop 04/29/20 at 08:06; Status DC Lactobacillus Rhamnosus (Culturelle) 1 cap BID PO Last administered on 04/29/20at 08:15; Start 04/28/20 at 21:00 Albumin Human 500 ml @ 125 mls/hr 1X ONCE IV Last administered on 04/28/20at 20:59; Start 04/28/20 at 20:00; Stop 04/28/20 at 23:59; Status DC Vitamin D (Vitamin D3) 5,000 unit DAILY PO Last administered on 04/29/20at 08:15; Start 04/28/20 at 20:00 Albumin Human 500 ml @ 125 mls/hr 1X ONCE IV Last administered on 04/29/20at 03:45; Start 04/29/20 at 04:00; Stop 04/29/20 at 07:59; Status DC Sodium Chloride 1,000 ml @ 200 mls/hr 1X ONCE IV Last administered on 04/29/20at 06:16; Start 04/29/20 at 06:00; Stop 04/29/20 at 10:59; Status DC Cefepime HCl (Maxipime) 2 gm Q12HR IVP Last administered on 04/29/20at 08:50; Start 04/29/20 at 09:00 Daptomycin 410 mg/ Sodium Chloride 50 ml @ 100 mls/hr Q24H IV Last administered on 04/29/20at 09:19; Start 04/29/20 at 09:00 Active Scripts Active Reported Dyazide 37.5-25 Capsule (Triamterene/Hydrochlorothiazid) 1 Each Capsule 1 Cap PO DAILY Lisinopril 40 Mg Tablet 40 Mg PO DAILY Lisinopril 10 Mg Tablet 1 Tab PO DAILY Vitals/I & O Vital Sign - Last 24 Hours 04/28/20 04/28/20 04/28/20 04/28/20 12:44 15:00 17:16 19:36 Temp 100.4 100.6 102.9 100.4 100.6 102.9 Pulse 98 87 Resp 21 16 B/P (MAP) 70/37 (48) 87/45 (59) 63/33 (43) Pulse Ox 98 98 O2 Delivery Room Air Room Air 04/28/20 04/28/20 04/28/20 04/29/20 19:37 22:09 23:34 00:21 Temp 99.5 102.8 99.5 102.8 Pulse 86 91 Resp 16 B/P (MAP) 71/35 (47) 106/54 (71) Pulse Ox 97 O2 Delivery Room Air Room Air 04/29/20 04/29/20 04/29/20 04/29/20 03:30 04:30 05:43 06:12 Temp 100.6 100.6 Pulse 95 85 87 84 Resp 16 B/P (MAP) 72/35 (47) 81/45 (57) 82/37 (52) 87/46 (60) Pulse Ox 95 O2 Delivery Room Air 04/29/20 04/29/20 04/29/20 08:00 08:02 10:33 Temp 98.6 98.9 98.6 98.9 Pulse 87 79 Resp 16 18 B/P (MAP) 92/47 (62) 87/47 (60) Pulse Ox 99 96 O2 Delivery Room Air Room Air Room Air Intake and Output 04/28/20 04/28/20 04/29/20 15:00 23:00 07:00 Intake Total 920 ml 200 ml 875 ml Output Total 900 ml 600 ml Balance 20 ml 200 ml 275 ml Justifications for Admission Other Justification FANY YOUNG MD Apr 29, 2020 11:56
--- NOTE | 2020-04-29 11:57 | NUR ---
SS following up with discharge planning. SS reviewed pt chart and discussed with pt RN. Pt is currently on room air. Pt on IV Daptomycin and IV Cefepime. SS will continue to follow for discharge planning.
[2020-04-29 13:02] LABS: HEMATOCRIT 26.1 % (36.0-47.0); HEMOGLOBIN 8.7 g/dL (12.0-15.5); RED BLOOD COUNT 2.7 x10^6/uL (3.50-5.40); RED CELL DISTRIBUTION WIDTH 12.4 % (11.5-14.5)
[2020-04-29 13:13] LABS: ALBUM 4.2 g/dL (2.9-4.4); ALPHA 1 0.2 g/dL (0.0-0.4); GAMMA 1.2 g/dL (0.4-1.8); KAPPA FREE 29.7 mg/L (3.3-19.4); LAMBDA FREE 15.6 mg/L (5.7-26.3); PROTEIN TOTAL 7.5 g/dL (6.0-8.5); SPEP AG RATIO 1.3 (0.7-1.7)
[2020-04-29 14:12] LABS: IMMUNOGLOBULIN A 189 mg/dL (87-352); IMMUNOGLOBULIN G 1265 mg/dL (586-1602); IMMUNOGLOBULIN M 122 mg/dL (26-217)
[2020-04-30 03:06] VITALS: BP 94/43
[2020-04-30 07:00] VITALS: BP 93/54
[2020-04-30] MEDS: LACTOBACILLUS RHAMNOSUS GG 1 CAPSULE. PO SCH (08:44)
[2020-04-30] MEDS: ACETAMINOPHEN 325 MG TABLET. PO PRN (08:44)
[2020-04-30] MEDS: MAGNESIUM OXIDE 400 MG TABLET PO SCH (08:44)
[2020-04-30] MEDS: CHOLECALCIFEROL (VITAMIN D3) 5,000 UNIT CAPSULE PO SCH (08:44)
[2020-04-30] MEDS: CEFEPIME HCL IV Push 2 GM VIAL. IVP SCH (08:45)
[2020-04-30 08:49] LABS: BASO % 1 % (0-3); EOS % 1 % (0-3); HEMATOCRIT 25.3 % (36.0-47.0); HEMOGLOBIN 8.6 g/dL (12.0-15.5); LYMPH % 25 % (24-48); MEAN CORPUSCULAR HEMOGLOBIN 33 pg (25-35); MEAN CORPUSCULAR HGB CONC 34 g/dL (31-37); MEAN CORPUSCULAR VOLUME 96 fL (79-100); MONO # 0.5 x10^3/uL (0.0-1.1); MONO % 12 % (0-9); NEUT # 2.5 x10^3/uL (1.8-7.7); NEUT % 61 % (31-73); PLATELET COUNT 236 x10^3/uL (140-400); RED BLOOD COUNT 2.64 x10^6/uL (3.50-5.40); RED CELL DISTRIBUTION WIDTH 12.6 % (11.5-14.5)
--- NOTE | 2020-04-30 09:02 | PDOC ---
DATE OF SERVICE DATE: 04/30/20 TIME: 09:02 SUBJECTIVE ROS States feeling much better and is ready to go home better. OBJECTIVE Vital Signs Vital Signs Date Time Temp Pulse Resp B/P (MAP) Pulse Ox O2 Delivery O2 Flow Rate FiO2 04/30/20 07:00 97.6 67 16 93/54 (67) 99 Room Air 97.6 I & 0 Intake and Output 04/30/20 07:00 Intake Total 1950 ml Output Total 900 ml Balance 1050 ml Intake Oral 1950 ml Output Urine Total 900 ml PHYSICAL EXAM Physical Exam General: Alert, Oriented X3, Cooperative, No acute distress HEENT: PERRLA Lungs: Clear to auscultation, Normal air movement Heart: Regular rate Abdomen: Normal bowel sounds, Soft, No tenderness Extremities: No cyanosis, No edema Skin: No rash Neuro: Normal speech, Sensation intact - No lilly DIAGNOSIS/ASSESSMENT Assessment & Plan Hyponatremia- severe -114 at presentation HCTZ dced, Improved with IVF to 133 JOSUE - Creat 1.3 , ?baseline ckd No prior labs available , FU as OP with nephrology (Non Urgent /Routine appt) Fever/Chills - Per ID Low Mg- replaced HyperCalcemia- mildly elevated, alicea for Paraproteinemia hematology following Anemia and Low WBC- hematology following Hypotension- since presentation, fluid boluses given, BP continues to be <100 systolic At home on antohypertesnives- CHARLES-I and HCTZ DC per primary. Recommend close fu with PCP Dw Pt and RN COMMENT/RELEVANT DATA Meds Current Medications Medications (Trade) Dose Ordered Sig/Quynh Start Time Stop Time Status Last Admin Dose Admin Acetaminophen (Tylenol) 650 mg PRN Q6HRS PRN 04/28/20 10:30 04/30/20 08:44 650 MG Albumin Human 500 ml @ 125 mls/hr 1X ONCE 04/29/20 04:00 04/29/20 07:59 DC 04/29/20 03:45 125 MLS/HR Cefepime HCl (Maxipime) 2 gm Q12HR 04/29/20 09:00 04/30/20 08:45 2 GM Ceftriaxone Sodium (Rocephin) 1 gm Q24H 04/28/20 11:00 04/29/20 08:05 DC 04/28/20 11:04 1 GM Daptomycin 410 mg/ Sodium Chloride 50 ml @ 100 mls/hr Q24H 04/29/20 09:00 04/29/20 09:19 100 MLS/HR Doxycycline Hyclate (Vibra-Tab) 100 mg BID 04/28/20 21:00 04/29/20 08:06 DC 04/28/20 21:01 100 MG Lactobacillus Rhamnosus (Culturelle) 1 cap BID 04/28/20 21:00 04/30/20 08:44 1 CAP Magnesium Oxide (Magnesium Oxide) 400 mg DAILY 04/26/20 17:00 04/30/20 08:44 400 MG Magnesium Sulfate 50 ml @ 25 mls/hr 1X ONCE 04/26/20 15:15 04/26/20 16:46 DC Sodium Chloride 1,000 ml @ 200 mls/hr 1X ONCE 04/29/20 06:00 04/29/20 10:59 DC 04/29/20 06:16 200 MLS/HR Vitamin D (Vitamin D3) 5,000 unit DAILY 04/28/20 20:00 04/30/20 08:44 5,000 UNIT Lab Laboratory Tests Test 04/29/20 12:50 White Blood Count 4.0 x10^3/uL (4.0-11.0) Red Blood Count 2.70 x10^6/uL (3.50-5.40) Hemoglobin 8.7 g/dL (12.0-15.5) Hematocrit 26.1 % (36.0-47.0) Mean Corpuscular Volume 97 fL (79-100) Mean Corpuscular Hemoglobin 32 pg (25-35) Mean Corpuscular Hemoglobin Concent 33 g/dL (31-37) Red Cell Distribution Width 12.4 % (11.5-14.5) Platelet Count 239 x10^3/uL (140-400) Results All relevant outside records, renal labs, imaging studies, telemetry/EKG's were reviewed. Justicifation of Admission Dx: Justifications for Admission: Justification of Admission Dx: Yes JEFFERSON OLSEN MD Apr 30, 2020 09:02
--- NOTE | 2020-04-30 09:04 | PDOC ---
Infectious Disease Note Subjective: Subjective Patient states feels much better today No fevers last 24 hours Left hand swelling, redness and pain are improving since PIV is out Denies fever, chills, nausea, vomiting, shortness of breath, diarrhea, abdominal pain, gu symptoms ,rash Otherwise as above Patient is ready for discharge home today per team Vital Signs: Vital Signs Vital Signs Date Time Temp Pulse Resp B/P (MAP) Pulse Ox O2 Delivery O2 Flow Rate FiO2 04/30/20 07:00 97.6 67 16 93/54 (67) 99 Room Air 97.6 Physical Exam: PHYSICAL EXAM GENERAL: Alert, oriented x 3 female, lying in bed comfortably, in no acute distress. HEENT: Normocephalic, atraumatic, anicteric. No thrush. NECK: Supple, no JVD, no lymphadenopathy. LUNGS: Clear bilaterally. No wheezing. HEART: S1, S2. No gallops or murmurs. ABDOMEN: Soft, nontender, nondistended, no rebound, no guarding. EXTREMITIES: No edema, no cyanosis. DERMATOLOGIC: Warm and dry. No generalized rash. NEUROLOGIC: Alert and oriented x 3, grossly nonfocal. PSYCHIATRIC: Cooperative. LINES: PIV left hand shows some swelling, mild tenderness. Improved no venous cords noted. No underlying fluctuance noted. Medications: Inpatient Meds: Current Medications Medications (Trade) Dose Ordered Sig/Quynh Start Time Stop Time Status Last Admin Dose Admin Acetaminophen (Tylenol) 650 mg PRN Q6HRS PRN 04/28/20 10:30 04/30/20 08:44 650 MG Albumin Human 500 ml @ 125 mls/hr 1X ONCE 04/29/20 04:00 04/29/20 07:59 DC 04/29/20 03:45 125 MLS/HR Cefepime HCl (Maxipime) 2 gm Q12HR 04/29/20 09:00 04/30/20 08:45 2 GM Ceftriaxone Sodium (Rocephin) 1 gm Q24H 04/28/20 11:00 04/29/20 08:05 DC 04/28/20 11:04 1 GM Daptomycin 410 mg/ Sodium Chloride 50 ml @ 100 mls/hr Q24H 04/29/20 09:00 04/29/20 09:19 100 MLS/HR Doxycycline Hyclate (Vibra-Tab) 100 mg BID 04/28/20 21:00 04/29/20 08:06 DC 04/28/20 21:01 100 MG Lactobacillus Rhamnosus (Culturelle) 1 cap BID 04/28/20 21:00 04/30/20 08:44 1 CAP Magnesium Oxide (Magnesium Oxide) 400 mg DAILY 04/26/20 17:00 04/30/20 08:44 400 MG Magnesium Sulfate 50 ml @ 25 mls/hr 1X ONCE 04/26/20 15:15 04/26/20 16:46 DC Sodium Chloride 1,000 ml @ 200 mls/hr 1X ONCE 04/29/20 06:00 04/29/20 10:59 DC 04/29/20 06:16 200 MLS/HR Vitamin D (Vitamin D3) 5,000 unit DAILY 04/28/20 20:00 04/30/20 08:44 5,000 UNIT Labs: Lab Laboratory Tests Test 04/29/20 12:50 White Blood Count 4.0 x10^3/uL (4.0-11.0) Red Blood Count 2.70 x10^6/uL (3.50-5.40) Hemoglobin 8.7 g/dL (12.0-15.5) Hematocrit 26.1 % (36.0-47.0) Mean Corpuscular Volume 97 fL (79-100) Mean Corpuscular Hemoglobin 32 pg (25-35) Mean Corpuscular Hemoglobin Concent 33 g/dL (31-37) Red Cell Distribution Width 12.4 % (11.5-14.5) Platelet Count 239 x10^3/uL (140-400) Objective: Assessment: 1. Febrile illness ,etiology unclear, could be superficial t hrombophlebitis from lt hand iv site Blood cultures negative so far 2. Asymptomatic bacteriuria, urine culture contaminant 3. Hypotension.Requiring IV bolus of fluids 4. Severe hyponatremia.Improving 5. Hypercalcemia. 6. Hypomagnesemia. 7. Anemia and leukopenia. Plan: Plan of Care Patient is ready for discharge per team dose cefepime and daptomycin before discharge Doxycycline for 7 days, prescription in chart Local care for her left hand Follow-up blood cultures , negative so far Hypotension and fluid management per nephrology Continue supportive care. Discussed with nursing staff. SAMANTHA SHULTZ MD Apr 30, 2020 09:04
[2020-04-30 09:06] LABS: ALBUMIN 3.5 g/dL (3.4-5.0); CALCIUM 10.1 mg/dL (8.5-10.1); CREATININE 1.3 mg/dL (0.6-1.0); GFR 41.6; POTASSIUM 4.1 mmol/L (3.5-5.1); TOTAL BILIRUBIN 0.5 mg/dL (0.2-1.0)
[2020-04-30] MEDS: DAPTOmycin (GENERIC) IVPB 410 MG in IV NORMAL SALINE 50ML 50 ML IV SCH (10:12)
[2020-04-30] MEDS ORDERED: IV NORMAL SALINE 500ML BAG 500 ML IV ONE ×2 (10:15→13:15)
--- NOTE | 2020-04-30 10:36 | PDOC ---
[employer] PROGRESS NOTE Date of Service DOS: DATE: 04/30/20 TIME: 10:23 Chief Complaint Chief Complaint Hyponatremia History of Present Illness History of Present Illness 04/30/2020 Patient seen and examined Patient sitting with NAD Monitor temperature Continue IV daptomycin and cefepime Discharge pending per ID Discussed with RN Discussed with Case management Reviewed chart 04/29/2020 Patient seen and examined Patient was in bed in NAD Patient was started on IV daptomycin and cefepime for probable sepsis with hypotension (86/42) Patient was also given albumin to stabilize BP. Appreciate ID and Heme/Onc input Discussed with daughter Will need to possibly switch to lisinopril without HCTZ when she goes home Sodium levels at 133 currently trending upwards 04/28/2020 Patient seen and examined Patient was walking around, NAD Discussed with RN Discussed with case management Reviewed chart Spiked a fever - ordered rocephin 1 g IV q24h Await ID Consult Sodium levels are still low at 129 Identification/Chief Complaint Chief Complaint cc ========= 59 yo AA F past medical history of hypertension, presents to the ED sent in by her primary care physician Dr. Acosta with concern for hyponatremia, sodium 115 that was drawn yesterday urine and serum osmolality pending as well as serum cortisol Past Medical History Cardiovascular: HTN Family History Family History: Hypertension Social History Smoke: No ALCOHOL: none Drugs: None Vitals/I&O Vitals/I&O: Vital Signs Date Time Temp Pulse Resp B/P (MAP) Pulse Ox O2 Delivery O2 Flow Rate FiO2 04/30/20 07:00 97.6 67 16 93/54 (67) 99 Room Air 97.6 I & O 04/29/20 04/29/20 04/30/20 15:00 23:00 07:00 Intake Total 660 ml 1040 ml 250 ml Output Total 300 ml 300 ml 300 ml Balance 360 ml 740 ml -50 ml Physical Exam Physical Exam: GENERAL: Alert, oriented x 3 female, lying in bed comfortably, in no acute distress. HEENT: Normocephalic, atraumatic, anicteric. No thrush. NECK: Supple, no JVD, no lymphadenopathy. LUNGS: Clear bilaterally. No wheezing. HEART: S1, S2. No gallops or murmurs. ABDOMEN: Soft, nontender, nondistended, no rebound, no guarding. EXTREMITIES: No edema, no cyanosis. DERMATOLOGIC: Warm and dry. No generalized rash. NEUROLOGIC: Alert and oriented x 3, grossly nonfocal. PSYCHIATRIC: Cooperative. LINES: PIV left hand shows some swelling, mild tenderness. Improved no venous cords noted. No underlying fluctuance noted. General: Alert, Oriented X3, Cooperative, No acute distress Heart: Regular rate, Normal S1 Lungs: Clear Abdomen: Normal bowel sounds, Soft Extremities: No clubbing, No cyanosis Skin: No rashes Labs Labs: Laboratory Tests Test 04/29/20 12:50 04/30/20 07:58 White Blood Count 4.0 x10^3/uL (4.0-11.0) 4.0 x10^3/uL (4.0-11.0) Red Blood Count 2.70 x10^6/uL (3.50-5.40) 2.64 x10^6/uL (3.50-5.40) Hemoglobin 8.7 g/dL (12.0-15.5) 8.6 g/dL (12.0-15.5) Hematocrit 26.1 % (36.0-47.0) 25.3 % (36.0-47.0) Mean Corpuscular Volume 97 fL (79-100) 96 fL (79-100) Mean Corpuscular Hemoglobin 32 pg (25-35) 33 pg (25-35) Mean Corpuscular Hemoglobin Concent 33 g/dL (31-37) 34 g/dL (31-37) Red Cell Distribution Width 12.4 % (11.5-14.5) 12.6 % (11.5-14.5) Platelet Count 239 x10^3/uL (140-400) 236 x10^3/uL (140-400) Neutrophils (%) (Auto) 61 % (31-73) Lymphocytes (%) (Auto) 25 % (24-48) Monocytes (%) (Auto) 12 % (0-9) Eosinophils (%) (Auto) 1 % (0-3) Basophils (%) (Auto) 1 % (0-3) Neutrophils # (Auto) 2.5 x10^3/uL (1.8-7.7) Lymphocytes # (Auto) 1.0 x10^3/uL (1.0-4.8) Monocytes # (Auto) 0.5 x10^3/uL (0.0-1.1) Eosinophils # (Auto) 0.0 x10^3/uL (0.0-0.7) Basophils # (Auto) 0.0 x10^3/uL (0.0-0.2) Sodium Level 133 mmol/L (136-145) Potassium Level 4.1 mmol/L (3.5-5.1) Chloride Level 100 mmol/L (98-107) Carbon Dioxide Level 25 mmol/L (21-32) Anion Gap 8 (6-14) Blood Urea Nitrogen 19 mg/dL (7-20) Creatinine 1.3 mg/dL (0.6-1.0) Estimated GFR (Cockcroft-Gault) 41.6 BUN/Creatinine Ratio 15 (6-20) Glucose Level 98 mg/dL (70-99) Calcium Level 10.1 mg/dL (8.5-10.1) Total Bilirubin 0.5 mg/dL (0.2-1.0) Aspartate Amino Transf (AST/SGOT) 33 U/L (15-37) Alanine Aminotransferase (ALT/SGPT) 36 U/L (14-59) Alkaline Phosphatase 72 U/L (46-116) Total Protein 7.0 g/dL (6.4-8.2) Albumin 3.5 g/dL (3.4-5.0) Albumin/Globulin Ratio 1.0 (1.0-1.7) Review of Systems Review of Systems: Denies pain Denies weakness Assessment and Plan Assessmemt and Plan Problems Medical Problems: (1) JOSUE (acute kidney injury) Status: Acute (2) Hypomagnesemia Status: Acute (3) Hyponatremia Status: Acute 1. 59 yo AA F past medical history of hypertension, presents with concern for hyponatremia, sodium 114 on admission 2. severe hyponatremia 3. mild hypercalcemia 4. normocytic anemia 5. hypomagnesemia 6. possible adrenal insufficiency 7. hypercalcemia ? OCCULT MALIGNANCY 8. Probable sepsis with hypotension Plan Discharge pending per ID Slow correction of Na, currently still 133 Trend labs Continue IV daptomycin and cefepime - switch to PO for discharge Continue IVF Cardiac monitoring DVT prophylaxis Home meds serum and urine immunofixation - no evidence of monoclonal antibodies IGG, IGA, IGM results WNL Appreciate ID & Heme/Onc input Switch to lisinopril without HCTZ on discharge Full code Comment Review of Relevant I have reviewed the following items mickey (where applicable) has been applied. Medications: Current Medications Medications (Trade) Dose Ordered Sig/Quynh Route PRN Reason Start Time Stop Time Status Last Admin Dose Admin Sodium Chloride 500 ml @ 500 mls/hr 1X ONCE IV 04/30/20 10:15 04/30/20 11:14 04/30/20 10:16 Justifications for Admission Other Justification SARMAD ADAMSON III DO Apr 30, 2020 10:36
[2020-04-30 11:00] VITALS: BP 87/51
--- NOTE | 2020-04-30 12:50 | NUR ---
SS following up with discharge planning. SS reviewed pt chart and discussed with pt RN. Pt is currently on room air. Script provided for PO Doxycycline. Discharge order on the chart for home with self care.
[2020-04-30 15:00] VITALS: BP 82/50
--- NOTE | 2020-04-30 16:30 | NUR ---
Discharge instructions given pt regarding follow up appointments with her primary and Dr. Maradiaga. Education given over medications, hypotension, and hyponatremia. Prescription for doxycycline given to pt. Pt verbalizes understanding.
== END 2020-04-30 16:50 | disposition home or self-care (01) | DRG 871 ==
LOC: ER 10:30 → ED HOLD 14:04 → 2 NORTH 15:07 → 1 WEST ICU 20:58 → 2 NORTH 04-27 04:41
PROVIDERS: ADMIT Family Medicine; ATTEND Family Medicine
DX: A41.9 Sepsis, unspecified organism (principal); N17.0 Acute kidney failure with tubular necrosis; E87.1 Hypo-osmolality and hyponatremia; E83.52 Hypercalcemia; D64.9 Anemia, unspecified; E55.9 Vitamin D deficiency, unspecified; E83.42 Hypomagnesemia; I10 Essential (primary) hypertension; Z91.041 Radiographic dye allergy status; Z82.49 Family history of ischemic heart disease and other diseases of the circulatory system; Z87.891 Personal history of nicotine dependence
CPT/HCPCS: 36415; 71045; 74176; 80048; 80053; 80069; 80307; 81001; 82306; 82310; 82436; 82533; 82607; 82784; 83010; 83520; 83540; 83550; 83605; 83615; 83735; 83930; 83935; 83970; 84100; 84133; 84165; 84300; 84439; 84445; 85025; 85027; 85045; 86334; 86335; 87040; 87086; 93005; 93306; 96360; 99291; J0692; J0696; J0878; J7030; J7040; P9045; G0378